=== PATIENT | male | born 1960 | race Caucasian/White ===

== ENCOUNTER 2017-07-22 07:22 | Emergency (ER) | payer OTHER, SELFPAY ==
[2017-07-22 07:22] VITALS: BP 167/105; BP 167/116; PULSE 71; RESP 15; TEMP 36.5; BMI 24.3
--- NOTE | 2017-07-22 07:55 | RAD_ITS ---
STUDY: X-RAY - LEFT HAND REASON FOR EXAM: Trauma, transmission fell on hand. TECHNIQUE: 3 view(s) of the hand. COMPARISON: None. FINDINGS: Normal radiocarpal articulation. Normal distal radioulnar joint. Normal visualized carpal bones. Normal carpal articulations There is joint space narrowing of the carpometacarpal articulation of the thumb. Normal second through fifth carpometacarpal joints. Normal metacarpi. Normal metacarpophalangeal joint of the thumb. Normal interphalangeal joint of the thumb. Normal proximal and distal phalanges of the thumb. Normal metacarpophalangeal joints of the second through fifth fingers. There are small marginal osteophytes and joint space narrowing of the second and third distal interphalangeal joints. Normal phalanges of the second through fifth fingers. There is a metallic foreign body adjacent to the first proximal phalanx. There are small metallic foreign bodies palmar and radial to the second proximal interphalangeal joint. There is a very small soft tissue ossification radial to the scaphoid. RAD/Hand Min 3 Views IMPRESSION: Arthrosis of the first carpometacarpal joint, and second and third distal interphalangeal joints. Metallic foreign bodies. No demonstrated fracture. Electronically Signed: Corby Leonard MD at 8:48 EDT Tel , Service support ,
--- NOTE | 2017-07-22 08:03 | ED.VISSUMM ---
- ER Visit Summary Date of Service: 07/22/17 Chief Complaint: Left hand injury with pain and swelling History of Present Illness: The patient is a 57 M [id number] male without significant past medical history other than COPD. 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 Complaining of pain and swelling today. Tetanus is up-to-date. He denies any prior fracture or surgery in the left hand. Physical Examination: Well appearing middle-aged male. Vital signs are stable afebrile. His blood pressure is elevated 167/116 which will be rechecked. HEENT exam unremarkable. Neck nontender. No lymphadenopathy. Lungs clear to auscultation. Chest wall nontender. Heart regular rate and rhythm. Abdomen soft nontender. He is moving all 4 extremities. They are neurovascularly intact. Specifically his dorsum of his left hand and wrist has swelling. There is tenderness to the dorsum of his left hand over the fifth or small finger metacarpal. There is no gross bony deformity. There is a superficial laceration which is not bleeding. He has decreased range of motion due to pain. And swelling. Distally the left hand has normal flow and sensation. Test Results: X-ray of his left hand 3 views show soft tissue swelling but no acute fracture noted. This is read by myself. Emergency Department Course and Treatment: Patient will be discharged to home with ice, elevation and anti-inflammatories. Treatment Plan: Ice and elevate. Motrin for pain and inflammation. Follow-up with his primary care physician if not improving in 1 week to have his hand reevaluated. Disposition: Discharge Impression: Acute left hand contusion with soft tissue swelling. This note was generated with [employer] dictation software. It may contain incorrect words, spelling, and punctuation that were not noted in review of the chart prior to signing ED Disposition - Plan for ED Patient: Disposition: Home or Assisted Living Chief Complaint: Upper Extremity Injury Instructions: ED Contusion Upper Ext Referrals: Faith James DO [Primary Care Provider] - 1 Week if not improving Additional Instructions: Ice and elevate your left hand to decrease pain and swelling. If pain and swelling not improving need to have this reevaluated to ensure that there is no nondisplaced fracture that is not seen today on the x-rays. Motrin for pain and swelling.
--- NOTE | 2017-07-22 08:08 | ED.DCSUM_ITS ---
- ER Visit Summary Date of Service: 07/22/17 Chief Complaint: Left hand injury with pain and swelling History of Present Illness: The patient is a 57 M [id number] male without significant past medical history other than COPD. 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 Complaining of pain and swelling today. Tetanus is up-to-date. He denies any prior fracture or surgery in the left hand. Physical Examination: Well appearing middle-aged male. Vital signs are stable afebrile. His blood pressure is elevated 167/116 which will be rechecked. HEENT exam unremarkable. Neck nontender. No lymphadenopathy. Lungs clear to auscultation. Chest wall nontender. Heart regular rate and rhythm. Abdomen soft nontender. He is moving all 4 extremities. They are neurovascularly intact. Specifically his dorsum of his left hand and wrist has swelling. There is tenderness to the dorsum of his left hand over the fifth or small finger metacarpal. There is no gross bony deformity. There is a superficial laceration which is not bleeding. He has decreased range of motion due to pain. And swelling. Distally the left hand has normal flow and sensation. Test Results: X-ray of his left hand 3 views show soft tissue swelling but no acute fracture noted. This is read by myself. Emergency Department Course and Treatment: Patient will be discharged to home with ice, elevation and anti-inflammatories. Treatment Plan: Ice and elevate. Motrin for pain and inflammation. Follow-up with his primary care physician if not improving in 1 week to have his hand reevaluated. Disposition: Discharge Impression: Acute left hand contusion with soft tissue swelling. This note was generated with [employer] dictation software. It may contain incorrect words, spelling, and punctuation that were not noted in review of the chart prior to signing ED Disposition - Plan for ED Patient: Disposition: Home or Assisted Living Chief Complaint: Upper Extremity Injury Instructions: ED Contusion Upper Ext Referrals: Faith James DO [Primary Care Provider] - 1 Week if not improving Additional Instructions: Ice and elevate your left hand to decrease pain and swelling. If pain and swelling not improving need to have this reevaluated to ensure that there is no nondisplaced fracture that is not seen today on the x-rays. Motrin for pain and swelling.
== END 2017-07-22 08:12 | disposition home or self-care (01) ==
PROVIDERS: Emergency Provider Emergency Medicine; Family Provider Internal Medicine; PCP Internal Medicine
DX: S60.222A Contusion of left hand, initial encounter (principal); W24.1XXA Contact with transmission devices, not elsewhere classified, initial encounter; Y93.9 Activity, unspecified; Y92.89 Other specified places as the place of occurrence of the external cause; Y99.9 Unspecified external cause status; J44.9 Chronic obstructive pulmonary disease, unspecified; Z72.0 Tobacco use
CPT/HCPCS: 73130; 99282

== ENCOUNTER → 2018-08-09 12:49 | Outpatient (CLI) | payer OTHER, SELFPAY ==
[2018-08-09 13:13] LABS: Bacteria 0 SEEN /hpf (None Seen); Mucous, Urine 0 SEEN /hpf (<or=2+); Red Blood Cells-Urine 0 SEEN /hpf (0-5); Squamous Epithelial Cells - UA 0 SEEN /hpf (0-5); White Blood Cells 0 SEEN /hpf (0-5)
[2018-08-09 14:14] LABS: Color, Urine Yellow (Yellow); Glucose, Dipstick Normal (Normal); Ketone-Dipstick Negative (Negative); Leukocyte Esterase-Dipstick Negative /ul (Negative); Nitrite-Dipstick Negative (Negative); Occult Blood-Urine Negative /ul (Negative); Protein-Dipstick Negative (Negative); Urine Bilirubin Dipstick Negative (Negative); Urine Clarity Sl. Cloudy (Clear); Urine Urobilinogen Normal (Normal); Urine pH 6.5 (5.0 - 8.0)
[2018-08-09 14:23] LABS: Erythrocyte Sedimentation Rate 13 mm/hr (0-20)
[2018-08-09 14:27] LABS: Absolute Lymphocyte Count 2.91 X10^3/ul (0.83-4.51); Absolute Neutrophil Count 3.5 X10^3/uL (2.0-7.7); Basophil# 0.05 X10^3/uL; Basophil% 0.7 % (0-1); Eosinophil# 0.25 X10^3/uL; Eosinophils% 3.4 % (0-5); Hematocrit 45.1 % (40-54); Hemoglobin 15.9 g/dl (13.0-16.5); Lymphocyte # 2.91 X10^3/ul (4.0); Lymphocyte % 39.9 % (19-41); Mean Corp Hgb Conc 35.3 g/gl (32-36); Mean Corpuscular Hgb 34.6 pg (27.0-32.0); Mean Platelet Vol. 10.2 fl (6.2-12.0); Monocyte# 0.64 X10^3/uL; Monocyte% 8.8 % (0-10); Neutrophil # 3.45 X10^3/uL (2.7-7.7); Neutrophil % 47.2 % (47-70); POSITIVE COUNT NO; POSITIVE DIFFERENTIAL NO; POSITIVE MORPHOLOGY NO; Platelet Count 280 K/mm3 (150-450); RBC Distribution Width CV 12.7 % (11.6-14.6); RBC Distribution Width SD 45.9 fl (35.1-43.9); White Blood Count 7.3 K/mm3 (4.4-11.0)
[2018-08-09 14:41] LABS: Microalbumin,Random Urine < 5.0 mg/L (NO RANGE EST.)
[2018-08-09 14:45] LABS: AST(SGOT) 23 U/L (15-37); Alanine Aminotransfer ALT/SGPT 39 U/L (16-61); Albumin, Serum 3.8 g/dL (3.2-5.0); Alkaline Phosphatase 54 U/L (45-117); Anion Gap 8 (5-15); BUN 8 mg/dL (7-18); BUN/Creat Ratio 11.3 RATIO (10-20); CRP < 2.90 mg/L (0.0-3.0); Calcium,Total 8.5 mg/dL (8.5-10.1); Chloride 107 mmol/L (98-107); Creatinine, Serum 0.71 mg/dL (0.70-1.30); EST Glomerular Filtration Rate 121 mL/min (>60); Est Glom Filt Rate - Afr Amer 146 mL/min (>60); Globulin 3.7 g/dL (2.2-4.2); Glucose 78 mg/dL (74-106); Potassium 3.9 mmol/L (3.5-5.1); Protein, Total 7.5 g/dL (6.4-8.2); Rheumatoid Factor < 10.0 IU/mL (<15); Sodium Level 139 mmol/L (136-145); Thyroid Stim Hormone (TSH) 1.55 uIU/mL (0.358-3.74)
[2018-08-10 10:16] LABS: Vitamin B12 1412 pg/mL (211-911); Vitamin D,25 Hydroxy 13.5 ng/mL (29.95-100.01)
[2018-08-10 10:19] LABS: Hepatitis C Antibody Reactive (Nonreactive)
[2018-08-11 16:07] LABS: CHOLESTEROL TOTAL 173 mg/dL (100-199); HDL-C 72 mg/dL (>39); HDL-P TOTAL 29.6 umol/L (>=30.5); SMALL LDL-P <90 nmol/L (<=527); TRIGLYCERIDES 98 mg/dL (0-149)
[2018-08-13 17:02] LABS: ANTINUCLEAR ANTIBODIES DIRECT Negative (Negative); INSULIN RESISTANCE SCORE <25 (<=45); LDL SIZE 21.8 nm (>20.5); LDL-C 81 mg/dL (0-99); LDL-P 686 nmol/L (<1000)
== END ==
LOC: MTLAB 12:50
PROVIDERS: Family Provider Internal Medicine; PCP Internal Medicine; Referring Provider Internal Medicine; Visit Provider Internal Medicine
DX: R53.83 Other fatigue (principal); I10 Essential (primary) hypertension; B19.20 Unspecified viral hepatitis C without hepatic coma
CPT/HCPCS: 36415; 80053; 80061; 81001; 82043; 82306; 82570; 82607; 82746; 83704; 84443; 85025; 85652; 86038; 86140; 86431; 86803

== ENCOUNTER → 2018-08-30 15:49 | Outpatient (CLI) | payer SELFPAY ==
--- NOTE | 2018-08-30 15:51 | RAD_ITS ---
STUDY: X-RAY CHEST REASON FOR EXAM: Male, 58 years old. COPD. Weight loss. TECHNIQUE: Frontal and lateral views of the chest COMPARISON: CT dated 10/08/2015. FINDINGS: There are stable severe emphysematous changes with large right apical bulla. There are no pulmonary infiltrates or pleural effusions. There is no pneumothorax. The heart is normal in size. The visualized osseous structures are within normal limits. RAD/Chest PA and Lateral IMPRESSION: Stable severe emphysema with large right apical bulla. No acute thoracic pathology. Please note that chest radiographs are not adequate screening for lung cancer. Electronically Signed: Jose Masterson, at 18:14 EDT Tel , Service support ,
== END ==
PROVIDERS: Family Provider Internal Medicine; PCP Internal Medicine; Referring Provider Nurse Practitioner; Visit Provider Nurse Practitioner
DX: J44.9 Chronic obstructive pulmonary disease, unspecified (principal); R53.83 Other fatigue; R63.4 Abnormal weight loss
CPT/HCPCS: 71046

== ENCOUNTER 2019-09-30 18:37 | Inpatient (IN) | payer OTHER, SELFPAY ==
[2019-09-30] VITALS (9 sets, daily range): BP systolic 132–192; BP diastolic 58–155; PULSE 64–85; RESP 14–24; TEMP 36.4–37.7; O2SAT 88–96; BMI 26.1; BMI 25.8
--- NOTE | 2019-09-30 18:51 | EKG12_ITS ---
Test Reason : SOB Blood Pressure : / mmHG Vent. Rate : 085 BPM Atrial Rate : 085 BPM P-R Int : 170 ms QRS Dur : 088 ms QT Int : 386 ms P-R-T Axes : 092 093 090 degrees QTc Int : 459 ms Suspect arm lead reversal, interpretation assumes no reversal Normal sinus rhythm Rightward axis Nonspecific ST abnormality Abnormal ECG Confirmed by JOANNA WALKER, LAKESHIA ([id number]), manager editorial DIANA PENA ([id number]) on 10/04/2019 9:00:20 AM Referred By: VERONICA Confirmed By:JUANA MARSHALL MD
--- NOTE | 2019-09-30 18:55 | RAD_ITS ---
STUDY: X-RAY CHEST REASON FOR EXAM: Male, 59 years old. shortness of breath, Hx smoker, emphysema TECHNIQUE: Frontal view of the chest COMPARISON: August 30 2018 FINDINGS: Right upper lung is replaced with a bulla with compressive effects on the right lower lobe parenchyma. There are diffuse increased lung markings and lung density in the left hemithorax. Cardiac size is normal. Osseous structures are intact. There is no gas under the diaphragms. RAD/Chest 1 View (Portable) IMPRESSION: Increased lung opacity, possibly acute disease, refer to definitive assessment with CT chest. Massive right upper lung bulla with right lower lobe compression. Electronically Signed: Akila Beebe, at 19:14 EDT Tel , Service support ,
[2019-09-30] MEDS: Ipratropium/Albuterol Sulfate 3 ML AMPUL.NEB INHALATION ×2 (19:05→23:54)
[2019-09-30] MEDS: Albuterol 2.5 MG/3 ML VIAL.NEB. INHALATION ×3 (19:05→21:00)
[2019-09-30 19:29] LABS: Absolute Lymphocyte Count 3.19 X10^3/uL (0.83-4.51); Absolute Neutrophil Count 7.5 X10^3/uL (2.0-7.7); Basophil# 0.04 X10^3/uL; Basophil% 0.3 % (0-1); Eosinophil# 0.06 X10^3/uL; Eosinophils% 0.5 % (0-5); Hematocrit 51.9 % (40-54); Hemoglobin 17.7 g/dL (13.0-16.5); Lymphocyte # 3.19 X10^3/ul (4.0); Lymphocyte % 26.6 % (19-41); Mean Corp Hgb Conc 34.1 g/dL (32-36); Mean Corpuscular Hgb 35.8 pg (27.0-32.0); Mean Corpuscular Volume 104.8 fL (80-94); Mean Platelet Vol. 9.6 fl (6.2-12.0); Monocyte# 1.12 X10^3/uL; Monocyte% 9.3 % (0-10); NRBC Flagged by Analyzer 0 % (0-5); Neutrophil # 7.53 X10^3/uL (2.7-7.7); Platelet Count 314 K/mm3 (150-450); RBC Distribution Width CV 12.2 % (11.6-14.6); RBC Distribution Width SD 47.6 fl (35.1-43.9); Red Blood Count 4.95 M/mm3 (4.6-6.2)
--- NOTE | 2019-09-30 19:34 | ED.VISSUMM ---
- ER Visit Summary Date of Service: 09/30/19 Chief Complaint: Shortness of breath History of Present Illness: The patient is a 59 M with shortness of breath. Patient states this started on Thursday and worsened today. He has shortness of breath which is worsened with exertion. He has chest pain with deep breathing and coughing. He has a history of COPD. He does not wear home O2. On arrival his pulse ox was 88% on room air. He has had temperature up to 99.8 at home. He has had a productive cough and myalgias. He tested negative for COVID in August. Physical Examination: Vitals are stable. Patient is afebrile. Alert no acute distress. Pulse ox 94% on 5 L. HEENT exam is unremarkable. Neck is supple. Lungs are wheezing bilaterally. Heart is regular rate and rhythm. Abdomen is soft nontender nondistended. Extremities are unremarkable. Skin is warm and dry. No focal neurologic deficit. Remainder of exam is unremarkable. Emergency Department Course and Treatment: Patient was given albuterol, Atrovent aerosols. EKG is sinus rhythm rate of 85 with no acute ischemic changes. Chest x-ray shows Increased lung opacity, possibly acute disease, refer to definitive assessment with CT chest. Massive right upper lung bulla with right lower lobe compression. CTA chest shows no pulmonary embolism. Right lower lobe atelectasis. Severe emphysema. No acute pulmonary disease. CBC shows white count 12.0. Chemistries unremarkable. Troponin is negative. D-dimer normal. COVID is negative. Patient was given Solu-Medrol IV. He continues to require oxygen in the emergency department. Will discuss with the hospitalist for admission. Disposition: Admission Impression: COPD exacerbation, hypoxia This note was generated with [employer] dictation software. It may contain incorrect words, spelling, and punctuation that were not noted in review of the chart prior to signing ED Disposition - Plan for ED Patient: Referrals: Faith James DO [Primary Care Provider] -
[2019-09-30 19:36] LABS: D-Dimer Quantitative (DVT/PE) 0.38 FEU/ug/m (0.27-0.49)
[2019-09-30 19:51] LABS: Anion Gap 7 (5-15); BUN 10 mg/dL (7-18); BUN/Creat Ratio 13.3 RATIO (10-20); Calcium,Total 9.5 mg/dL (8.5-10.1); Chloride 108 mmol/L (98-107); Creatinine, Serum 0.75 mg/dL (0.70-1.30); EST Glomerular Filtration Rate 112 mL/min (>60); Est Glom Filt Rate - Afr Amer 136 mL/min (>60); Estimated Creatinine Clearance 113.53 ml/min; Glucose 98 mg/dL (74-106); Potassium 4.2 mmol/L (3.5-5.1); Sodium Level 138 mmol/L (136-145)
--- NOTE | 2019-09-30 20:08 | CT_ITS ---
STUDY: CTA CHEST REASON FOR EXAM: Male, 59 years old. sudden onset of sob with fever. RUL bulla. hx of copd emphysema and hep c RADIATION DOSAGE (If Supplied By Facility): CTDIvol = ( ) mGy, DLP = ( ) mGycm TECHNIQUE: The examination was performed with the intravenous administration of 100 ml isovue 370. Post-processing of the angiographic images was performed, with multiplanar reformation and 3D reconstruction. Individualized dose optimization techniques were used for this CT. COMPARISON: None. FINDINGS: Lungs are severely emphysematous with a giant bulla replacing the right upper lobe with compressive effects on the right lower lobe. There is a small irregularly-shaped elongated predominantly subpleural consolidation in the right lower lobe. There are extensive cystic bullous changes in the left upper lobe with mild to moderate compressive change on the left lower lobe. Central airways are patent. There are no pleural effusions. There is no acute or chronic pulmonary embolism. Mediastinal contents are normal. Cardiac chambers are normal in size and shape. The skeleton is osteoporotic with midthoracic mild compression wedging deformity. CT/CTA Chest W/WO Contrast IMPRESSION: 1. No pulmonary embolism 2. Right lower lobe atelectasis. 3. Severe emphysema. No acute pulmonary disease. Electronically Signed: Akila Beebe, at 20:39 EDT Tel , Service support ,
[2019-09-30 20:24] LABS: Probe Check PASS; Specimen Processing Control PASS
[2019-09-30] MEDS: MethylPREDNISolone 125 MG/2 ML Vial IV (21:43)
--- NOTE | 2019-09-30 21:43 | HP.PCM_ITS ---
Problem List (1) COPD (chronic obstructive pulmonary disease) Status: Acute Qualifiers: COPD type: COPD with acute exacerbation Qualified Code(s): J44.1 - Chronic obstructive pulmonary disease with (acute) exacerbation (2) Hep C w/o coma, chronic Status: Chronic (3) Neck pain Status: Inactive History of Present Illness Date of Admission: 09/30/19 Chief Complaint: sob The patient is a 59 year old M with a significant history of COPD; and hepatitis C who presents emergency department with 6-day history of progressively worsening shortness of breath. His shortness of breath is at rest and it worsens with mild exertion. He was so short of breath that to he took a half day off work. Associated with his symptoms is productive cough of yellow sputum. Also he had wheezes. Further, he had right upper back pain. He tried multiple doses of his rescue inhaler without any real relief. He denied any chills or fever. He had a negative COVID test in August 2019. Past Medical History Past Medical History (Chronic Problems): Chronic Problems (Last Updated 10/01/19 @ 04:[address] Fernando Galicia MD) Hep C w/o coma, chronic (Chronic) Medical History: Medical History (Last Updated 10/01/19 @ 04:[address] Fernando Galicia MD) COPD (chronic obstructive pulmonary disease) J44.9 Allergies latex Allergy (Severe, Verified 09/30/19 18:45) Other passed out after coming into contact with an [place]. Primary MD diagnosed him with a latex allergy Home Medications: Ambulatory Orders Medication Instructions Recorded Acetaminophen [Tylenol] 2,000 mg PO 4X/DAY PRN 07/22/17 Albuterol Aerosols [Ventolin 2.5 mg INHALATION BID 07/22/17 Aerosols] Amlodipine [Norvasc] 5 mg PO DAILY 07/22/17 Albuterol Sulfate [Albuterol 2 puff IH Q4H 09/30/19 Sulfate HFA] Surgical History: - - Ankle fracture surgery. He has 2 screws in his ankle. Smoking Status: Former smoker Alcohol: None - *Family History Maternal History Items: - - Denies knowledge of maternal medical history Paternal History Items: - - Arthritis Review of Systems Constitutional: Denies: Chills, Fever, Weight Change HEENT: Denies: Head Aches, Sinus Congestion, Sinus Drainage Cardiovascular: Denies: Chest Pain, Palpitations Respiratory: Reports: Shortness of breath at rest, Sputum production, Wheezing. Denies: Cough Gastrointestinal: Denies: Abdominal Pain, Nausea, Vomiting Genitourinary: Denies: Dysuria Musculoskeletal: Denies: Joint Pain, Joint Tenderness Skin: Denies: Rash, Wounds Neurological: Denies: Numbness, Tingling, Focal weakness Psychiatric: Denies: Anxiety, Depression, Homicidal Ideations, Suicidal Ideations Hematologic/ Lymphatic: Denies: Easy Bruising, Easy Bleeding VTE Information - Inpt Only VTE Present on Admission: No VTE Mechan Device Prophylaxis: None VTE Pharm Prophylaxis ordered?: Yes - Physical Exam Vitals/I&O's: Vital Signs Temp Pulse Resp BP Pulse Ox 99.9 F H 65 18 132/58 H 93 09/30/19 18:45 09/30/19 20:29 09/30/19 20:29 09/30/19 20:29 09/30/19 20:29 Oxygen Flow Rate (L/min) 3 Oxygen Delivery Method Nasal Cannula Weight: 87.4 kg Body Mass Index (BMI) 26.1 General: Alert, Oriented x3, Cooperative HEENT: Atraumatic, PERRLA, EOMI, Normocephalic Neck: Supple, No JVD, Negative Carotid Bruits Lungs: No rhonchi, No rales, Wheezes Cardiovascular: Regular rate, Normal S1, Normal S2, No murmurs Abdomen: Bowel Sounds Present, Soft, Non Tender Extremities: No edema, Capillary Refill Less than 3 Seconds Skin: No rashes, No breakdown Musculoskeletal: No Tenderness to Palpation of Joints or Extremities Neurological: Cranial nerves II-XII grossly intact Psych/Mental Status: Normal Affect, Appropriate Laboratory Results 09/30/19 18:43: WBC 12.0 H, RBC 4.95, Hgb 17.7 H, Hct 51.9, MCV 104.8 H, MCH 35.8 H, MCHC 34.1, RDW Std Deviation 47.6 H, RDW Coeff of Tim 12.2, Plt Count 314, MPV 9.6, Immature Gran % (Auto) 0.300, Neut % (Auto) 63.0, Lymph % (Auto) 26.6, [place] % (Auto) 9.3, Eos % (Auto) 0.5, Baso % (Auto) 0.3, Absolute Neuts (auto) 7.5, Absolute Lymphs (auto) 3.19, Nucleated RBC % 0 09/30/19 18:43: D-Dimer Quant (PE/DVT) 0.38 09/30/19 18:43: Sodium 138, Potassium 4.2, Chloride 108 H, Carbon Dioxide 23.0, Anion Gap 7, BUN 10, Creatinine 0.75, Estim Creat Clear Calc 113.53, Est GFR (MDRD) Af Amer 136, Est GFR (MDRD) Non-Af 112, BUN/Creatinine Ratio 13.3, Glucose 98, Calcium 9.5, Troponin I < 0.015 09/30/19 19:05: COVID-19 (RYAN) Negative Assessment/Plan All Active Problems (Last Updated 10/01/19 @ 04:[address] Fernando Galicia MD) COPD (chronic obstructive pulmonary disease) (Acute) The patient is a 59 year old M with a significant history of COPD; and hepatitis C who presents emergency department with 6-day history of progressively worsening shortness of breath; productive cough. Acute Exacerbation of COPD CXR independently reviewed confirms massive right upper lobe lung bullae with right lower lobe compression Chest CTA showed severe pulmonary disease without any pulmonary embolism. Scheduled DuoNeb Albuterol as needed Solu-Medrol 125 mg IV was given in the emergency department. Because of low-grade fever and leukocytosis will start patient on azithromycin IV. Oxygen as needed Monitor BMP and CBC Incentive spirometer and acapella ordered. Mucinex ordered COVID test was negative at the ED and patient's chest imaging does not point to covid HTN On presentation blood pressure was not within goal Amlodipine continued Trend blood pressure and adjust blood pressure medications. DVT prophylaxis Subcutaneous Lovenox. Inpatient E&M: 21314 Init Hosp L3
[2019-10-01] VITALS (13 sets, daily range): BP systolic 144–176; BP diastolic 90–118; PULSE 78–101; RESP 12–18; TEMP 36.4–36.9; O2SAT 92–94
[2019-10-01] MEDS: guaiFENesin 1,200 MG Tablet 1200 MG PO ×3 (00:27→20:52)
[2019-10-01] MEDS: Acetaminophen 325 MG Tablet 650 MG PO ×4 (00:34→20:09)
[2019-10-01] MEDS: MELATONIN 3 MG TABLET PO ×2 (00:34→20:53)
[2019-10-01] MEDS: 0.9% Saline Lock 10 ML Syringe IV ×5 (00:34→20:05)
[2019-10-01] MEDS: hydrALAZINE 20 MG/ML Vial 5 MG IV ×2 (06:19→20:02)
[2019-10-01] MEDS: Ipratropium/Albuterol Sulfate 3 ML AMPUL.NEB INHALATION ×4 (07:01→18:40)
[2019-10-01 07:30] LABS: Absolute Lymphocyte Count 1.22 X10^3/uL (0.83-4.51); Absolute Neutrophil Count 7.1 X10^3/uL (2.0-7.7); Basophil# 0.01 X10^3/uL; Basophil% 0.1 % (0-1); Hematocrit 52.7 % (40-54); Lymphocyte # 1.22 X10^3/ul (4.0); Lymphocyte % 14.1 % (19-41); Mean Corp Hgb Conc 34.2 g/dL (32-36); Mean Corpuscular Hgb 35.3 pg (27.0-32.0); Mean Corpuscular Volume 103.3 fL (80-94); Mean Platelet Vol. 9.2 fl (6.2-12.0); Monocyte# 0.25 X10^3/uL; Monocyte% 2.9 % (0-10); NRBC Flagged by Analyzer 0 % (0-5); Neutrophil # 7.12 X10^3/uL (2.7-7.7); Neutrophil % 82.3 % (47-70); Platelet Count 316 K/mm3 (150-450); RBC Distribution Width CV 12.2 % (11.6-14.6); RBC Distribution Width SD 46.9 fl (35.1-43.9); White Blood Count 8.7 K/mm3 (4.4-11.0)
[2019-10-01 07:46] LABS: Anion Gap 9 (5-15); BUN 10 mg/dL (7-18); BUN/Creat Ratio 14.7 RATIO (10-20); Calcium,Total 9.3 mg/dL (8.5-10.1); Chloride 104 mmol/L (98-107); Creatinine, Serum 0.68 mg/dL (0.70-1.30); EST Glomerular Filtration Rate 125 mL/min (>60); Est Glom Filt Rate - Afr Amer 152 mL/min (>60); Estimated Creatinine Clearance 125.21 ml/min; Glucose 144 mg/dL (74-106); Potassium 3.8 mmol/L (3.5-5.1); Sodium Level 135 mmol/L (136-145)
[2019-10-01] MEDS: Enoxaparin 40 MG/0.4 ML Syringe SC (08:05)
[2019-10-01] MEDS: amLODIPine 5 MG Tablet PO ×2 (08:06→10:43)
--- NOTE | 2019-10-01 10:10 | PN_ITS ---
Subjective: Patient seen and examined. He still complains of shortness of breath and got very short of breath when he even try to go to the bathroom this morning. He quit smoking 2 years ago but had a very long smoking history. He denies any wheezing, chest pain, nausea or vomiting. Review of symptoms otherwise negative. Of note, patient could not complete sentences without getting short of breath. Vitals/I&O's: Vital Signs Temp Pulse Resp BP Pulse Ox 97.5 F L 89 16 176/90 H 93 10/01/19 08:09 10/01/19 08:09 10/01/19 08:09 10/01/19 08:09 10/01/19 08:09 Oxygen Flow Rate (L/min) 2 Oxygen Delivery Method Nasal Cannula Weight: 190 lb 4.143 oz Body Mass Index (BMI) 25.8 Intake and Output for Last 24 Hours 09/29/19 09/30/19 10/01/19 23:59 23:59 23:59 Intake Total 455 / 455 Balance 455 / 455 General: Alert, Oriented x3, Cooperative, No apparent distress HEENT: Atraumatic, PERRLA, EOMI, Normocephalic Oral: Dry Mucosa Neck: Supple, No JVD, Negative Carotid Bruits Lungs: - - lungs sound very tight, with diminished breath sounds in all lung rondon. No wheezes or crackles. Cardiovascular: Regular rate, Regular Rhythm, Normal S1, Normal S2, No murmurs Abdomen: Bowel Sounds Present, Soft, Non Tender, Non-Distended, No Hepato- splenomegaly Extremities: No clubbing, No cyanosis, No edema, Capillary Refill Less than 3 Seconds Skin: No rashes, No breakdown Musculoskeletal: No Tenderness to Palpation of Joints or Extremities Lymphatic: No Cervical, Supraclavicular, or Inguinal Adenopathy Neurological: Cranial nerves II-XII grossly intact, Neuro grossly intact, Motor Exam 5/5 strength throughout Psych/Mental Status: Normal Affect, Appropriate, Alert and oriented to time, place, person, mood and affect Laboratory Results 09/30/19 18:43: WBC 12.0 H, RBC 4.95, Hgb 17.7 H, Hct 51.9, MCV 104.8 H, MCH 35.8 H, MCHC 34.1, RDW Std Deviation 47.6 H, RDW Coeff of Tim 12.2, Plt Count 314, MPV 9.6, Immature Gran % (Auto) 0.300, Neut % (Auto) 63.0, Lymph % (Auto) 26.6, [place] % (Auto) 9.3, Eos % (Auto) 0.5, Baso % (Auto) 0.3, Absolute Neuts (auto) 7.5, Absolute Lymphs (auto) 3.19, Nucleated RBC % 0 09/30/19 18:43: D-Dimer Quant (PE/DVT) 0.38 09/30/19 18:43: Sodium 138, Potassium 4.2, Chloride 108 H, Carbon Dioxide 23.0, Anion Gap 7, BUN 10, Creatinine 0.75, Estim Creat Clear Calc 113.53, Est GFR (MDRD) Af Amer 136, Est GFR (MDRD) Non-Af 112, BUN/Creatinine Ratio 13.3, Glucose 98, Calcium 9.5, Troponin I < 0.015 09/30/19 19:05: COVID-19 (RYAN) Negative 10/01/19 06:55: WBC 8.7, RBC 5.10, Hgb 18.0 H*, Hct 52.7, MCV 103.3 H, MCH 35.3 H, MCHC 34.2, RDW Std Deviation 46.9 H, RDW Coeff of Tim 12.2, Plt Count 316, MPV 9.2, Immature Gran % (Auto) 0.600, Neut % (Auto) 82.3 H, Lymph % (Auto) 14.1 L, [place] % (Auto) 2.9, Eos % (Auto) 0.0, Baso % (Auto) 0.1, Absolute Neuts (auto) 7.1, Absolute Lymphs (auto) 1.22, Nucleated RBC % 0, Diff Path Review June10/01/19 06:55: Sodium 135 L, Potassium 3.8, Chloride 104, Carbon Dioxide 22.0, Anion Gap 9, BUN 10, Creatinine 0.68 L, Estim Creat Clear Calc 125.21, Est GFR (MDRD) Af Amer 152, Est GFR (MDRD) Non-Af 125, BUN/Creatinine Ratio 14.7, Glucose 144 H, Calcium 9.3 Diagnostic Data Chest X-Ray 09/30/19 18:55 IMPRESSION: Increased lung opacity, possibly acute disease, refer to definitive assessment with CT chest. Massive right upper lung bulla with right lower lobe compression. Electronically Signed: Akila Beebe, at 19:14 EDT Tel , Service support , Chest CTA 09/30/19 20:08 IMPRESSION: 1. No pulmonary embolism 2. Right lower lobe atelectasis. 3. Severe emphysema. No acute pulmonary disease. Electronically Signed: Akila Solomonhammad, at 20:39 EDT Tel , Service support , Current Medications Acetaminophen (Tylenol) 650 mg PO Q6H PRN PRN PRN Reason: Pain Score 1-10/Temp > 100.7 F Last Admin: 10/01/19 08:05 Dose: 650 mg Documented by: Albuterol Sulfate (Ventolin Aerosols) 2.5 mg INHALATION Q2H PRN PRN PRN Reason: Shortness of Breath/Wheezing Albuterol/Ipratropium (Duoneb) 3 ml INHALATION Q4HWA.RT [facility] Last Admin: 10/01/19 07:01 Dose: 3 ml Documented by: Amlodipine Besylate (Norvasc) 5 mg PO DAILY [facility] Last Admin: 10/01/19 08:06 Dose: 5 mg Documented by: Enoxaparin Sodium (Lovenox) 40 mg SC DAILY [facility] Last Admin: 10/01/19 08:05 Dose: 40 mg Documented by: Guaifenesin (Mucinex) 1,200 mg PO BID [facility] Last Admin: 10/01/19 08:06 Dose: 1,200 mg Documented by: Hydralazine HCl (Apresoline Iv) 5 mg IV Q4H PRN PRN PRN Reason: BLOOD PRESSURE Last Admin: 10/01/19 06:19 Dose: 5 mg Documented by: Azithromycin 500 mg/ Dextrose 255 mls @ 250 mls/hr IV Q24@2200 [facility] Stop: 10/02/19 23:02 Last Infusion: 10/01/19 01:29 Dose: Infused Documented by: Sodium Chloride () 250 mls @ 15 mls/hr IV .[id number] PRN PRN Reason: Saline Flush Melatonin (Melatonin) 3 mg PO QHS PRN PRN PRN Reason: INSOMNIA Last Admin: 10/01/19 00:34 Dose: 3 mg Documented by: Methylprednisolone (Solu-Medrol) 40 mg IV Q8 SADIA Last Admin: 10/01/19 05:27 Dose: 40 mg Documented by: Ondansetron HCl (Zofran) 4 mg IV Q8H PRN PRN PRN Reason: NAUSEA/VOMITING Sodium Chloride () 10 - 40 ml IV UD PRN PRN Reason: SALINE FLUSH Last Admin: 10/01/19 06:19 Dose: 10 ml Documented by: STROKE Vital Signs/Narrative: Vital Signs Temp Pulse Resp BP Pulse Ox 10/01/19 08:09 97.5 F L 89 16 176/90 H 93 10/01/19 07:01 80 16 10/01/19 06:19 84 Medical Necessity - Tobacco Use Smoking Status: Former smoker Tobacco Use: Cigarettes Assessment/Plan All Active Problems (Last Updated 10/01/19 @ 04:[address] Fernando Galicia MD) COPD (chronic obstructive pulmonary disease) (Acute) # Acute COPD exacerbation * Breath sounds still generally diminished and lung sounds very tight. * Chest x-ray showed massive right upper lung bullae with right lower lobe compression. CTA of the chest showed severe pulmonary disease without any PE. * On duo nebs as needed. * On IV Solu-Medrol as well as IV azithromycin. * On incentive spirometry and Acapella. COVID test was negative. * Titrate oxygen to maintain saturation above 90%. * #Hypertension: On amlodipine. Pressure remains elevated. Will give IV hydralazine PRN. Add on losartan. #Acute hypoxic respiratory insufficiency due to COPD exacerbation: Management as under 1. DVT prophylaxis: lovenox Inpatient E&M: 99649 Subs Hosp L3
--- NOTE | 2019-10-01 14:01 | CASEMGMT ---
RN CM Assessment Note Intro role of CM to patient in room. Pt is awake, alert and able to participate in assessment. patient is independent, does not use DME and plans to return home. COVID negative Diagnosis: COPD PCP: Dr. Faith James Insurance: [facility] Preferred [facility]acy: [facility] Prescription Benefit: yes LNOK: [place] Living Arrangements: Lives independently, works. no care needs identified. Tranportation: drives DME: nebulizer only HHC: none SNF: none Patient DC Goals: Home on dc DC Plan: Home CM available for discharge planning coordination. Contact CM for any concerns/needs that may arise. Aviva MCKEONN RN ACM
[2019-10-01] MEDS: Albuterol 2.5 MG/3 ML VIAL.NEB. INHALATION (21:07)
[2019-10-02] VITALS (13 sets, daily range): BP systolic 135–182; BP diastolic 94–114; PULSE 76–96; RESP 12–18; TEMP 36.6–36.9; O2SAT 93–94
[2019-10-02] MEDS: Ipratropium/Albuterol Sulfate 3 ML AMPUL.NEB INHALATION ×4 (07:18→19:23)
[2019-10-02] MEDS: hydrALAZINE 20 MG/ML Vial 5 MG IV (08:06)
[2019-10-02 08:42] LABS: Absolute Lymphocyte Count 1.53 X10^3/uL (0.83-4.51); Absolute Neutrophil Count 15.8 X10^3/uL (2.0-7.7); Basophil# 0.03 X10^3/uL; Basophil% 0.2 % (0-1); Hematocrit 51.8 % (40-54); Hemoglobin 17.6 g/dL (13.0-16.5); Lymphocyte # 1.53 X10^3/ul (4.0); Lymphocyte % 8.1 % (19-41); Mean Corpuscular Hgb 35.7 pg (27.0-32.0); Mean Corpuscular Volume 105.1 fL (80-94); Mean Platelet Vol. 9.2 fl (6.2-12.0); Monocyte% 6.9 % (0-10); NRBC Flagged by Analyzer 0 % (0-5); Neutrophil # 15.84 X10^3/uL (2.7-7.7); Neutrophil % 84.3 % (47-70); Platelet Count 316 K/mm3 (150-450); RBC Distribution Width CV 12.6 % (11.6-14.6); RBC Distribution Width SD 49.1 fl (35.1-43.9); Red Blood Count 4.93 M/mm3 (4.6-6.2); White Blood Count 18.8 K/mm3 (4.4-11.0)
[2019-10-02 09:20] LABS: Anion Gap 4 (5-15); BUN 17 mg/dL (7-18); BUN/Creat Ratio 27.5 RATIO (10-20); Calcium,Total 9.4 mg/dL (8.5-10.1); Chloride 110 mmol/L (98-107); Creatinine, Serum 0.62 mg/dL (0.70-1.30); EST Glomerular Filtration Rate 140 mL/min (>60); Est Glom Filt Rate - Afr Amer 170 mL/min (>60); Estimated Creatinine Clearance 137.33 ml/min; Glucose 120 mg/dL (74-106); Potassium 4.3 mmol/L (3.5-5.1); Sodium Level 138 mmol/L (136-145)
[2019-10-02] MEDS: guaiFENesin 1,200 MG Tablet 1200 MG PO ×2 (09:39→22:16)
[2019-10-02] MEDS: Enoxaparin 40 MG/0.4 ML Syringe SC (09:41)
[2019-10-02] MEDS: Losartan Potassium 25 MG Tablet PO (09:41)
[2019-10-02] MEDS: Acetaminophen 325 MG Tablet 650 MG PO ×2 (09:41→17:13)
--- NOTE | 2019-10-02 12:22 | PN_ITS ---
<Trevor Malcolm - Last Filed: 10/02/19 12:22> Reason for Visit: SOB Subjective: Pt with ongoing severe dyspnea on exertion and SOB with conversation. Pt ok with going on o2 but does not feel that he is ready for DC yet. he has no fever or chills. minimal cough. no wheezing. Pt has never seen a cardiology. Pt states he has not smoked in two years however his still smokes in the garage at home and smokes in the car. We discussed the need for him to be completely removed from any smoke exposure. He will talk to his concerning this. We discussed 2nd and 3rd hand smoke exposure. Vitals/I&O's: Vital Signs Temp Pulse Resp BP Pulse Ox 98.1 F 88 12 182/94 H 94 10/02/19 08:23 10/02/19 11:18 10/02/19 11:18 10/02/19 09:55 10/02/19 09:55 Oxygen Flow Rate (L/min) 2 Oxygen Delivery Method Nasal Cannula Weight: 190 lb 4.143 oz Body Mass Index (BMI) 25.8 Intake and Output for Last 24 Hours 09/30/19 10/01/19 10/02/19 23:59 23:59 23:59 Intake Total 1709 600 / 600 Balance 1709 600 / 600 General: Alert, Oriented x3, Cooperative HEENT: Atraumatic, PERRLA, EOMI, Normocephalic Neck: Supple, No JVD, Negative Carotid Bruits Lungs: Clear to auscultation, Diminished, Short of Breath, - - conversational dyspnea Cardiovascular: Regular rate, No murmurs Abdomen: Bowel Sounds Present, Soft, Non Tender Extremities: No edema, Capillary Refill Less than 3 Seconds Skin: No rashes, No breakdown Musculoskeletal: No Tenderness to Palpation of Joints or Extremities Neurological: Cranial nerves II-XII grossly intact Psych/Mental Status: Normal Affect, Appropriate, Alert and oriented to time, place, person, mood and affect Laboratory Results 10/02/19 08:15: WBC 18.8 H, RBC 4.93, Hgb 17.6 H, Hct 51.8, MCV 105.1 H, MCH 35.7 H, MCHC 34.0, RDW Std Deviation 49.1 H, RDW Coeff of Tim 12.6, Plt Count 316, MPV 9.2, Immature Gran % (Auto) 0.500, Neut % (Auto) 84.3 H, Lymph % (Auto) 8.1 L, Stearns % (Auto) 6.9, Eos % (Auto) 0.0, Baso % (Auto) 0.2, Absolute Neuts (auto) 15.8 H, Absolute Lymphs (auto) 1.53, Nucleated RBC % 0 10/02/19 08:15: Sodium 138, Potassium 4.3, Chloride 110 H, Carbon Dioxide 24.0, Anion Gap 4 L, BUN 17, Creatinine 0.62 L, Estim Creat Clear Calc 137.33, Est GFR (MDRD) Af Amer 170, Est GFR (MDRD) Non-Af 140, BUN/Creatinine Ratio 27.5 H, Glucose 120 H, Calcium 9.4 Current Medications Acetaminophen (Tylenol) 650 mg PO Q6H PRN PRN PRN Reason: Pain Score 1-10/Temp > 100.7 F Last Admin: 10/01/19 20:09 Dose: 650 mg Documented by: Albuterol Sulfate (Ventolin Aerosols) 2.5 mg INHALATION Q2H PRN PRN PRN Reason: Shortness of Breath/Wheezing Last Admin: 10/01/19 21:07 Dose: 2.5 mg Documented by: Albuterol/Ipratropium (Duoneb) 3 ml INHALATION Q4HWA.RT [facility] Last Admin: 10/02/19 11:18 Dose: 3 ml Documented by: Enoxaparin Sodium (Lovenox) 40 mg SC DAILY [facility] Last Admin: 10/02/19 09:41 Dose: 40 mg Documented by: Guaifenesin (Mucinex) 1,200 mg PO BID [facility] Last Admin: 10/02/19 09:39 Dose: 1,200 mg Documented by: Hydralazine HCl (Apresoline Iv) 5 mg IV Q4H PRN PRN PRN Reason: BLOOD PRESSURE Last Admin: 10/02/19 08:06 Dose: 5 mg Documented by: Azithromycin 500 mg/ Dextrose 255 mls @ 250 mls/hr IV Q24@2200 [facility] Stop: 10/02/19 23:02 Last Infusion: 10/01/19 21:15 Dose: Infused Documented by: Sodium Chloride () 250 mls @ 15 mls/hr IV .[id number] PRN PRN Reason: Saline Flush Losartan Potassium (Cozaar) 25 mg PO DAILY [facility] Last Admin: 10/02/19 09:41 Dose: 25 mg Documented by: Melatonin (Melatonin) 3 mg PO QHS PRN PRN PRN Reason: INSOMNIA Last Admin: 10/01/19 20:53 Dose: 3 mg Documented by: Methylprednisolone (Solu-Medrol) 40 mg IV Q8 [facility] Last Admin: 10/02/19 05:29 Dose: 40 mg Documented by: Ondansetron HCl (Zofran) 4 mg IV Q8H PRN PRN PRN Reason: NAUSEA/VOMITING Sodium Chloride () 10 - 40 ml IV UD PRN PRN Reason: SALINE FLUSH Last Admin: 10/01/19 20:05 Dose: 10 ml Documented by: STROKE Vital Signs/Narrative: Vital Signs Temp Pulse Resp BP BP Pulse Ox 10/02/19 11:18 88 12 10/02/19 09:55 76 18 182/94 H 94 10/02/19 08:23 98.1 F 78 18 169/114 H 94 Medical Necessity - Tobacco Use Smoking Status: Former smoker Tobacco Use: Cigarettes Assessment/Plan All Active Problems (Last Updated 10/01/19 @ 04:[address] Fernando Galicia MD) COPD (chronic obstructive pulmonary disease) (Acute) 1. COPD exacerbation - severe changes in lung structure on CT, pt has little functional lung tissue remaining. 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 He quit smoking 2 years ago but continues to have 2nd and 3rd hand smoke exposure. Continue incentive spirometer, aerosols, azithro, solumedrol. 2. Polycythemia - suspect 2/2 above 3. HTN - uncontrolled. losartan added today. DVT ppx: lovenox DC planning: pt will likely require o2 at dc. Follow up with pulmonology will be essential This patient was seen by Trevor Malcolm PA-C under the supervision of Dr. Wilcox. <Ruthie Wilcox - Last Filed: 10/02/19 13:55> Vitals/I&O's: Vital Signs Temp Pulse Resp BP Pulse Ox 98.4 F 96 18 156/94 H 94 10/02/19 13:28 10/02/19 13:28 10/02/19 13:28 10/02/19 13:28 10/02/19 13:28 Oxygen Flow Rate (L/min) 2 Oxygen Delivery Method Nasal Cannula Weight: 190 lb 4.143 oz Body Mass Index (BMI) 25.8 Intake and Output for Last 24 Hours 09/30/19 10/01/19 10/02/19 23:59 23:59 23:59 Intake Total 1709 950 / 950 Balance 1709 950 / 950 Laboratory Results 10/02/19 08:15: WBC 18.8 H, RBC 4.93, Hgb 17.6 H, Hct 51.8, MCV 105.1 H, MCH 35.7 H, MCHC 34.0, RDW Std Deviation 49.1 H, RDW Coeff of Tim 12.6, Plt Count 316, MPV 9.2, Immature Gran % (Auto) 0.500, Neut % (Auto) 84.3 H, Lymph % (Auto) 8.1 L, Stearns % (Auto) 6.9, Eos % (Auto) 0.0, Baso % (Auto) 0.2, Absolute Neuts (auto) 15.8 H, Absolute Lymphs (auto) 1.53, Nucleated RBC % 0 10/02/19 08:15: Sodium 138, Potassium 4.3, Chloride 110 H, Carbon Dioxide 24.0, Anion Gap 4 L, BUN 17, Creatinine 0.62 L, Estim Creat Clear Calc 137.33, Est GFR (MDRD) Af Amer 170, Est GFR (MDRD) Non-Af 140, BUN/Creatinine Ratio 27.5 H, Glucose 120 H, Calcium 9.4 Current Medications Acetaminophen (Tylenol) 650 mg PO Q6H PRN PRN PRN Reason: Pain Score 1-10/Temp > 100.7 F Last Admin: 10/02/19 09:41 Dose: 650 mg Documented by: Albuterol Sulfate (Ventolin Aerosols) 2.5 mg INHALATION Q2H PRN PRN PRN Reason: Shortness of Breath/Wheezing Last Admin: 10/01/19 21:07 Dose: 2.5 mg Documented by: Albuterol/Ipratropium (Duoneb) 3 ml INHALATION Q4HWA.RT [facility] Last Admin: 10/02/19 11:18 Dose: 3 ml Documented by: Enoxaparin Sodium (Lovenox) 40 mg SC DAILY [facility] Last Admin: 10/02/19 09:41 Dose: 40 mg Documented by: Guaifenesin (Mucinex) 1,200 mg PO BID [facility] Last Admin: 10/02/19 09:39 Dose: 1,200 mg Documented by: Hydralazine HCl (Apresoline Iv) 5 mg IV Q4H PRN PRN PRN Reason: BLOOD PRESSURE Last Admin: 10/02/19 08:06 Dose: 5 mg Documented by: Azithromycin 500 mg/ Dextrose 255 mls @ 250 mls/hr IV Q24@2200 [facility] Stop: 10/02/19 23:02 Last Infusion: 10/01/19 21:15 Dose: Infused Documented by: Sodium Chloride () 250 mls @ 15 mls/hr IV .[id number] PRN PRN Reason: Saline Flush Losartan Potassium (Cozaar) 25 mg PO DAILY [facility] Last Admin: 10/02/19 09:41 Dose: 25 mg Documented by: Melatonin (Melatonin) 3 mg PO QHS PRN PRN PRN Reason: INSOMNIA Last Admin: 10/01/19 20:53 Dose: 3 mg Documented by: Methylprednisolone (Solu-Medrol) 40 mg IV Q8 [facility] Last Admin: 10/02/19 13:14 Dose: 40 mg Documented by: Ondansetron HCl (Zofran) 4 mg IV Q8H PRN PRN PRN Reason: NAUSEA/VOMITING Sodium Chloride () 10 - 40 ml IV UD PRN PRN Reason: SALINE FLUSH Last Admin: 10/02/19 13:14 Dose: 10 ml Documented by: STROKE Vital Signs/Narrative: Vital Signs Temp Pulse Resp BP BP Pulse Ox 10/02/19 13:28 98.4 F 96 18 156/94 H 94 10/02/19 11:18 88 12 10/02/19 09:55 76 18 182/94 H 94 Assessment/Plan Patient seen by Trevor Malcolm PA-C under my supervision. Seen and examined today. He feels her shortness of breath is getting better today but still not at his baseline. He admits to minimal wheezing. He denies chest pain, nausea vomiting or diarrhea. Review systems otherwise negative. Remains on 2 L of oxygen. O/E: Vital Signs Temp Pulse Resp BP Pulse Ox 98.4 F 96 18 156/94 H 94 10/02/19 13:28 10/02/19 13:28 10/02/19 13:28 10/02/19 13:28 10/02/19 13:28 General: Alert, Oriented x3, Cooperative, No apparent distress HEENT: Atraumatic, PERRLA, EOMI, Normocephalic Oral: Dry Mucosa Neck: Supple, No JVD, Negative Carotid Bruits Lungs: - -mildly diminished breath sounds bibasally, no wheezes or crackles. Cardiovascular: Regular rate, Regular Rhythm, Normal S1, Normal S2, No murmurs Abdomen: Bowel Sounds Present, Soft, Non Tender, Non-Distended, No Hepato- splenomegaly Extremities: No clubbing, No cyanosis, No edema, Capillary Refill Less than 3 Seconds Skin: No rashes, No breakdown Musculoskeletal: No Tenderness to Palpation of Joints or Extremities Lymphatic: No Cervical, Supraclavicular, or Inguinal Adenopathy Neurological: Cranial nerves II-XII grossly intact, Neuro grossly intact, Motor Exam 5/5 strength throughout Psych/Mental Status: Normal Affect, Appropriate, Alert and oriented to time, place, person, mood and affect Plan is continue IV Solu-Medrol and breathing treatments with duo nebs. Titrate oxygen to maintain saturation above 90%. Patient counseled that he would likely need oxygen to go home as he still gets short of breath with ambulation. Patient counseled to quit smoking and avoid second hand smoke on discharge. Rest as per Trevor Malcolm PA-C's notes which I have reviewed and endorsed. Inpatient E&M: 02221 Subs Hosp L2
[2019-10-02] MEDS: 0.9% Saline Lock 10 ML Syringe IV (13:14)
[2019-10-02] MEDS: MELATONIN 3 MG TABLET PO (22:16)
[2019-10-03 02:00] VITALS: BP 164/95; PULSE 83; RESP 18; TEMP 36.7; O2SAT 93
[2019-10-03 06:18] VITALS: O2SAT 93
[2019-10-03 07:36] VITALS: PULSE 90; RESP 15; O2SAT 92
[2019-10-03] MEDS: Ipratropium/Albuterol Sulfate 3 ML AMPUL.NEB INHALATION ×2 (07:36→11:41)
[2019-10-03 09:10] VITALS: BP 142/98; PULSE 84; RESP 18; TEMP 36.5; O2SAT 93
[2019-10-03] MEDS: guaiFENesin 1,200 MG Tablet 1200 MG PO (09:10)
[2019-10-03] MEDS: Enoxaparin 40 MG/0.4 ML Syringe SC (09:10)
[2019-10-03] MEDS: Losartan Potassium 25 MG Tablet PO (09:10)
--- NOTE | 2019-10-03 09:21 | CPS ---
Using PEP on own
[2019-10-03 09:23] VITALS: O2SAT 87; O2SAT 90
--- NOTE | 2019-10-03 10:02 | PCM.CONS.PUL ---
Reason for Consult Date of Consultation: 10/03/19 Reason for Consultation: Acute hypoxemic respiratory insufficiency/COPD with exacerbation. History of Present Illness: The patient is a 59-year-old male, with a history as outlined below, who presented to the emergency department on September 29 with complaints of progressive exertional shortness of breath. He reportedly has a history of COPD diagnosed by an unknown provider approximately 8 years ago. He has never been evaluated by clinical research director, he does not currently utilize supplemental oxygen at his baseline, prior to this hospitalization. He does have a 65-bmtr-ybyo smoking history, having quit completely 2 years ago. He only utilizes albuterol on an as-needed basis at his baseline. 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 On presentation to the emergency department, the patient was noted to be febrile and hypertensive. He was initially documented to be saturating 88% on room air. Initial laboratory evaluation revealed an elevated white blood cell count of 12,000. Hemoglobin was elevated to 17.7 g/dL. D-dimer was negative. Chemistry profile was within normal limits. Troponin was negative. Coronavirus PCR was negative. A CTA chest was obtained which revealed significant upper lobe emphysematous changes with giant bullae. The patient was subsequently admitted to the medical surgical floor where he was treated with azithromycin, scheduled bronchodilators and IV steroids. He does appear to have a new oxygen requirement based upon his ambulatory walk test. The patient is agreeable to outpatient pulmonary follow-up. Past Medical History Past Medical History (Chronic Problems): Chronic Problems (Last Updated 10/01/19 @ 04:[address] Fernando Galicia MD) Hep C w/o coma, chronic (Chronic) Medical History: Medical History (Last Updated 10/01/19 @ 04:[address] Fernando Galicia MD) COPD (chronic obstructive pulmonary disease) J44.9 Allergies latex Allergy (Severe, Verified 09/30/19 18:45) Other passed out after coming into contact with an avaca. Primary MD diagnosed him with a latex allergy Home Medications: Ambulatory Orders Medication Instructions Recorded Acetaminophen [Tylenol] 2,000 mg PO 4X/DAY PRN 07/22/17 Albuterol Aerosols [Ventolin 2.5 mg INHALATION BID 07/22/17 Aerosols] Amlodipine [Norvasc] 5 mg PO DAILY 07/22/17 Albuterol Sulfate [Albuterol 2 puff IH Q4H 09/30/19 Sulfate HFA] Ipratropium/Albuterol Sulfate 3 ml INHALATION Q6H #120 ampul.neb 10/03/19 [Duoneb] Losartan Potassium [Cozaar] 25 mg PO DAILY #30 tab 10/03/19 Prednisone See Taper PO UD #30 tab 10/03/19 hydrOXYzine pamoate capsule 50 mg PO TID PRN PRN #90 cap 10/03/19 [Vistaril pamoate capsule] Surgical History: - - Ankle fracture surgery. He has 2 screws in his ankle. Smoking Status: Former smoker Tobacco Use: Cigarettes Alcohol: None - *Family History Maternal History Items: - - Denies knowledge of maternal medical history Paternal History Items: - - Arthritis Review of Systems Constitutional: Denies: Chills, Fever Eyes: Denies: Blurred vision, Double vision HEENT: Denies: Head Aches, Sinus Congestion, Sinus Drainage Cardiovascular: Denies: Chest Pain, Palpitations Respiratory: Reports: Cough, Shortness of Breath Gastrointestinal: Denies: Abdominal Pain, Nausea, Vomiting Genitourinary: Denies: Dysuria Musculoskeletal: Denies: Joint Pain, Joint Tenderness Skin: Reports: Dryness Neurological: Denies: Numbness, Tingling, Focal weakness Psychiatric: Denies: Anxiety, Depression, Homicidal Ideations, Suicidal Ideations Hematologic/ Lymphatic: Denies: Easy Bruising, Easy Bleeding Objective: The patient's most recent lab work, culture data and imaging studies have all been personally reviewed. - Physical Exam Vitals/I&O's: Vital Signs Temp Pulse Resp BP Pulse Ox 97.7 F L 84 18 142/98 H 90 10/03/19 09:10 10/03/19 09:10 10/03/19 09:10 10/03/19 09:10 10/03/19 09:23 Oxygen Flow Rate (L/min) [ 4 AMBULATION with Oxygen] Oxygen Flow Rate (L/min) 2 Oxygen Delivery Method Nasal Cannula Weight: 190 lb 4.143 oz Body Mass Index (BMI) 25.8 Intake and Output for Last 24 Hours 10/01/19 10/02/19 10/03/19 23:59 23:59 23:59 Intake Total 1709 1205 / 1205 Balance 1709 1205 / 1205 General: Alert, Cooperative, No apparent distress, - - Sitting in bedside recliner. HEENT: Atraumatic, Normocephalic Oral: Moist Mucosa, No Gingival or Mucosal Lesions/ Ulcerations Neck: Supple, No Nodes, Trachea Midline Lungs: - - Globally diminished air movement bilaterally. Prolonged expiratory phase. No accessory muscle use. Speaking in full sentences. Cardiovascular: Regular rate, Regular Rhythm Abdomen: Bowel Sounds Present, Soft, Non Tender Extremities: No clubbing, No cyanosis, No edema Skin: No breakdown Musculoskeletal: No Tenderness to Palpation of Joints or Extremities, No Muscle Wasting Lymphatic: No Cervical, Supraclavicular, or Inguinal Adenopathy Neurological: Cranial nerves II-XII grossly intact, Neuro grossly intact Psych/Mental Status: Alert and oriented to time, place, person, mood and affect Labs (Last 48 Hours) 10/02/19 10/02/19 08:15 08:15 WBC 18.8 H RBC 4.93 Hgb 17.6 H Hct 51.8 MCV 105.1 H MCH 35.7 H MCHC 34.0 RDW Std Deviation 49.1 H RDW Coeff of Tim 12.6 Plt Count 316 MPV 9.2 Immature Gran % (Auto) 0.500 Neut % (Auto) 84.3 H Lymph % (Auto) 8.1 L [place] % (Auto) 6.9 Eos % (Auto) 0.0 Baso % (Auto) 0.2 Absolute Neuts (auto) 15.8 H Absolute Lymphs (auto) 1.53 Nucleated RBC % 0 Sodium 138 Potassium 4.3 Chloride 110 H Carbon Dioxide 24.0 Anion Gap 4 L BUN 17 Creatinine 0.62 L Estim Creat Clear Calc 137.33 Est GFR (MDRD) Af Amer 170 Est GFR (MDRD) Non-Af 140 BUN/Creatinine Ratio 27.5 H Glucose 120 H Calcium 9.4 Clinical Impression(s) from Imaging Studies Chest X-Ray 09/30/19 18:55 IMPRESSION: Increased lung opacity, possibly acute disease, refer to definitive assessment with CT chest. Massive right upper lung bulla with right lower lobe compression. Electronically Signed: Akila Beebe, at 19:14 EDT Tel , Service support , Chest CTA 09/30/19 20:08 IMPRESSION: 1. No pulmonary embolism 2. Right lower lobe atelectasis. 3. Severe emphysema. No acute pulmonary disease. Electronically Signed: Akila Beebe, at 20:39 EDT Tel , Service support , Current Medications Acetaminophen (Tylenol) 650 mg PO Q6H PRN PRN PRN Reason: Pain Score 1-10/Temp > 100.7 F Last Admin: 10/02/19 17:13 Dose: 650 mg Documented by: Albuterol Sulfate (Ventolin Aerosols) 2.5 mg INHALATION Q2H PRN PRN PRN Reason: Shortness of Breath/Wheezing Last Admin: 10/01/19 21:07 Dose: 2.5 mg Documented by: Albuterol/Ipratropium (Duoneb) 3 ml INHALATION Q4HWA.RT [facility] Last Admin: 10/03/19 07:36 Dose: 3 ml Documented by: Enoxaparin Sodium (Lovenox) 40 mg SC DAILY [facility] Last Admin: 10/03/19 09:10 Dose: 40 mg Documented by: Guaifenesin (Mucinex) 1,200 mg PO BID [facility] Last Admin: 10/03/19 09:10 Dose: 1,200 mg Documented by: Hydralazine HCl (Apresoline Iv) 5 mg IV Q4H PRN PRN PRN Reason: BLOOD PRESSURE Last Admin: 10/02/19 08:06 Dose: 5 mg Documented by: Hydroxyzine Pamoate (Vistaril Pamoate Capsule) 50 mg PO TID PRN PRN PRN Reason: ANXIETY Sodium Chloride () 250 mls @ 15 mls/hr IV .[id number] PRN PRN Reason: Saline Flush Losartan Potassium (Cozaar) 25 mg PO DAILY [facility] Last Admin: 10/03/19 09:10 Dose: 25 mg Documented by: Melatonin (Melatonin) 3 mg PO QHS PRN PRN PRN Reason: INSOMNIA Last Admin: 10/02/19 22:16 Dose: 3 mg Documented by: Methylprednisolone (Solu-Medrol) 40 mg IV Q8 [facility] Last Admin: 10/03/19 06:13 Dose: 40 mg Documented by: Ondansetron HCl (Zofran) 4 mg IV Q8H PRN PRN PRN Reason: NAUSEA/VOMITING Sodium Chloride () 10 - 40 ml IV UD PRN PRN Reason: SALINE FLUSH Last Admin: 10/02/19 13:14 Dose: 10 ml Documented by: Assessment/Plan All Active Problems (Last Updated 10/01/19 @ 04:[address] Fernando Galicia MD) COPD (chronic obstructive pulmonary disease) (Acute) RECOMMENDATIONS: 1. Continue supplemental oxygen to maintain saturations at or above 90%. 2. Continue scheduled bronchodilator therapy. At discharge, please provide with prescription for duo nebs. 3. Continue IV steroids. Okay to transition to prednisone with plans for a prolonged steroid taper. 4. The patient will require home-going supplemental oxygen. 5. The patient should follow-up in the pulmonary medicine clinic within 2 weeks of discharge. Outpatient PFTs will need to be obtained. The patient would likely benefit from being started on long-acting bronchodilator therapy as well. IMPRESSIONS: 1. Acute hypoxemic respiratory insufficiency likely secondary to COPD with exacerbation The patient does have a self-reported history of COPD of unknown severity. He has never been evaluated by a clinical research director, nor has he ever completed a full set of pulmonary function studies. He does have significant emphysema with bullous changes noted on CT chest. In addition, he does have what appears to be secondary polycythemia, raising the concern for chronic hypoxemia. The patient is only utilizing short acting bronchodilators in his home environment at his baseline. He has improved symptomatically on scheduled bronchodilators and IV steroids while admitted to the hospital. I would recommend that at discharge he be sent home with a prescription for scheduled DuoNeb therapy along with prednisone with a prolonged taper. He will require supplemental oxygen at discharge. He should follow-up in the pulmonary medicine clinic within 2 weeks so that orders for baseline PFTs can be placed. In addition, the patient will likely require the initiation of long-acting bronchodilator therapy. 2. History of tobacco dependency, currently in remission Ongoing smoking cessation was strongly recommended. 3. Hypertension The patient was notably hypertensive on admission to the hospital. Blood pressures have improved with medical intervention. This note was generated with [employer] software. It may contain incorrect words, spelling, and punctuation that were not noted in checking the note before signing. Inpatient E&M: 14827 Init Hosp L3
--- NOTE | 2019-10-03 10:48 | CASEMGMT ---
KIMBERLY KLEIN updated that patient qualifies for home oxygen. KIMBERLY CM in and provided DME companies to patient and would like [employer]. Script received and referral sent to [facility], arranged for delivery to patient's room prior to discharge. Patient had no further questions or concerns.
--- NOTE | 2019-10-03 11:37 | DCINST_ITS ---
You will use the following diet at home:: Cardiac Your food should be the consistency of: Regular Your liquids should be the consistency of: Regular/Thin Discharge Activity: Return to Normal Activity Call your doctor if you observe: Shortness of breath Additional Instructions: You need to avoid any exposure to smoke from nicotine or any other source. Allergies/Adverse Reactions: Allergies latex Allergy (Severe, Verified 09/30/19 18:45) Other passed out after coming into contact with an [place]acado. Primary MD diagnosed him with a latex allergy Medications to take at Discharge Acetaminophen [Tylenol] 2,000 mg PO 4X/DAY PRN 07/22/17 Albuterol Aerosols [Ventolin Aerosols] 2.5 mg INHALATION BID 07/22/17 Amlodipine [Norvasc] 5 mg PO DAILY 07/22/17 Albuterol Sulfate [Albuterol Sulfate HFA] 2 puff IH Q4H 09/30/19 Ipratropium/Albuterol Sulfate [Duoneb] 3 ml INHALATION Q6H #120 ampul.neb 10/03/19 Losartan Potassium [Cozaar] 25 mg PO DAILY #30 tab 10/03/19 Prednisone See Taper PO UD #30 tab 10/03/19 hydrOXYzine pamoate capsule [Vistaril pamoate capsule] 50 mg PO TID PRN PRN #90 cap 10/03/19 The following prescriptions were given: Losartan Potassium [Cozaar] 25 mg PO DAILY #30 tab Transmission Status: Pending to [facility] Ipratropium/Albuterol Sulfate [Duoneb] 3 ml INHALATION Q6H #120 ampul.neb Transmission Status: Pending to [facility] Prednisone See Taper PO UD #30 tab Transmission Status: Pending to [facility] hydrOXYzine pamoate capsule [Vistaril pamoate capsule] 50 mg PO TID PRN PRN #90 cap PRN Reason: Anxiety Transmission Status: Pending to [facility] Primary Care Physician: Faith James DO [Primary Care Provider] - Please follow up with your Primary Care Physician in: 1-2 weeks Test Results: Test results from this visit will be discussed in further detail at your follow- up appointment, if applicable. Please Follow Up With: Ernesto Rich DO When: 2 weeks Proposed Discharge Date: 10/03/19
[2019-10-03 11:41] VITALS: PULSE 85; RESP 18
[2019-10-03 12:55] LABS: Pathologist Review Reviewed
--- NOTE | 2019-10-03 13:17 | PCM.DC.SUM ---
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 Fernando Galicia MD) Hep C w/o coma, chronic (Chronic) Hospital Course and Treatment Imaging Results: IMAGING: RAD/Chest 1 View (Portable) IMPRESSION: Increased lung opacity, possibly acute disease, refer to definitive assessment with CT chest. Massive right upper lung bulla with right lower lobe compression. CT/CTA Chest W/WO Contrast IMPRESSION: 1. No pulmonary embolism 2. Right lower lobe atelectasis. 3. Severe emphysema. No acute pulmonary disease. Consults: Pulmonary Medicine - [facility] Operations: None Procedures: None Summary of Care Provided: Hospital course: The patient is a 59 year old M with pmhx of COPD and former nicotine abuse, hx HTN, Hep C, who presented to the ER with c/o severe SOB with exertion, productive cough, and wheezes. He had a recent negative COVID test. CXR showed massive bulla and RLL compression, and CTA showed severe pulmonary disease and bulla. He was admitted to the med surg floor for COPD exacerbation. He was treated with steroids and aerosols. He gradually improved however was still unable to be weaned off O2. He required up to 4lpm o2 with exertion. He is active at home and in the community and will require supplemental Oxygen at discharge in order to maintain adequate sats. The patient had never seen a cigar sorter. I discussed the case with Pulmonology who recommended a steroid taper, duonebs, and close follow up for further workup regarding his severe emphysema. He was discharged home in stable condition. He should also follow up with his PCP in 1-2 weeks. Also of note his still smokes in the garage at home and in the car, and I discussed the need for absolute avoidance of smoke exposure, and explained the risks of secondhand and thirdhand smoke exposure to him. The patient has not smoked in 2 years. Lastly, he was started on losartan in addition to his amlodipine as his blood pressure was uncontrolled while here. This patient was seen by Trevor Malcolm PA-C under the supervision of Doctor Brenden. [] - Physical Exam Vitals/I&O's: Vital Signs Temp Pulse Resp BP Pulse Ox 97.7 F L 84 18 142/98 H 90 10/03/19 09:10 10/03/19 09:10 10/03/19 09:10 10/03/19 09:10 10/03/19 09:23 Oxygen Flow Rate (L/min) [ 4 AMBULATION with Oxygen] Oxygen Flow Rate (L/min) 2 Oxygen Delivery Method Nasal Cannula Weight: 190 lb 4.143 oz Body Mass Index (BMI) 25.8 Intake and Output for Last 24 Hours 10/01/19 10/02/19 10/03/19 23:59 23:59 23:59 Intake Total 1709 1205 / 1205 Balance 1709 1205 / 1205 General: Alert, Oriented x3, Cooperative HEENT: Atraumatic, PERRLA, EOMI, Normocephalic Neck: Supple, No JVD, Negative Carotid Bruits Lungs: Clear to auscultation, Diminished Cardiovascular: Regular rate, No murmurs Abdomen: Bowel Sounds Present, Soft, Non Tender Extremities: No edema, Capillary Refill Less than 3 Seconds Skin: No rashes, No breakdown Musculoskeletal: No Tenderness to Palpation of Joints or Extremities Neurological: Cranial nerves II-XII grossly intact Psych/Mental Status: Normal Affect, Appropriate, Alert and oriented to time, place, person, mood and affect Laboratory Results 10/01/19 06:55: Diff Path Review Reviewed Discharge Diet: Low fat/ Low Cholesterol, 2000 mg Sodium Diet Discharge Activity: Return to Normal Activity Call your doctor if you observe: Shortness of breath Home Medications: Medications to take at Discharge Acetaminophen [Tylenol] 2,000 mg PO 4X/DAY PRN 07/22/17 Albuterol Aerosols [Ventolin Aerosols] 2.5 mg INHALATION BID 07/22/17 Amlodipine [Norvasc] 5 mg PO DAILY 07/22/17 Albuterol Sulfate [Albuterol Sulfate HFA] 2 puff IH Q4H 09/30/19 Ipratropium/Albuterol Sulfate [Duoneb] 3 ml INHALATION Q6H #120 ampul.neb 10/03/19 Losartan Potassium [Cozaar] 25 mg PO DAILY #30 tab 10/03/19 Prednisone See Taper PO UD #30 tab 10/03/19 hydrOXYzine pamoate capsule [Vistaril pamoate capsule] 50 mg PO TID PRN PRN #90 cap 10/03/19 Following Prescriptions Were Given to Patient: Losartan Potassium [Cozaar] 25 mg PO DAILY #30 tab Transmission Status: Received by [facility] Ipratropium/Albuterol Sulfate [Duoneb] 3 ml INHALATION Q6H #120 ampul.neb Transmission Status: Received by [facility] Prednisone See Taper PO UD #30 tab Transmission Status: Received by [facility] hydrOXYzine pamoate capsule [Vistaril pamoate capsule] 50 mg PO TID PRN PRN #90 cap PRN Reason: Anxiety Transmission Status: Received by [facility] Primary Care Physician: Faith James DO [Primary Care Provider] - Please follow up with your Primary Care Physician in: 1-2 weeks Please Follow Up With: Ernesto Rich DO When: 2 weeks Please Follow Up With: Erika Cuevas DO Disposition: Home Minutes spent on discharge:: 35 Patient Condition:: Stable Medical Necessity - Tobacco Use Smoking Status: Former smoker Tobacco Use: Cigarettes Meaningful Use Info Meaningful Use Diagnoses (Choose all that apply): None applicable <Ruthie Wilcox - Last Filed: 10/03/19 15:14> Discharge Date and Diagnosis - Secondary Discharge Diagnosis Chronic Problems: Chronic Problems (Last Updated 10/01/19 @ 04:[address] Fernando Galicia MD) Hep C w/o coma, chronic (Chronic) Hospital Course and Treatment Summary of Care Provided: Patient seen by Trevor Malcolm PA-C under my supervision The patient is a 59 year old M with a past medical history of COPD and nicotine dependence which he had stopped 2 years ago, hypertension and hepatitis C. He was admitted through the ED on 09/30/2019 with a complaint of severe shortness of breath with exertion as well as wheezing and a productive cough. Cover test was negative. Chest x-ray done showed massive: Right lower lobe compression. She was admitted and managed for acute COPD exacerbation and acute hypoxic respiratory failure due to COPD exacerbation. CT of the chest done severe pulmonary disease with no evidence of PE. He was put on breathing treatments with bronchodilators and IV Solu-Medrol. He was also initially put on IV azithromycin. Patient's shortness of breath gradually improved but he was still could not be weaned off of oxygen and required home oxygen as saturation dropped with ambulation to 87% on room air and he required 4 L of oxygen to come up to 90%. Pulmonology was also consulted for patient to establish care and follow-up on outpatient basis. Patient was discharged home on 10/03/2019 with a steroid taper and breathing treatments with bronchodilators. Blood pressure had been poorly controlled during admission and losartan was added on in addition to his amlodipine to help control blood pressure. Patient was discharged on 10/03/2019 and is to follow-up with his primary care doctor and pulmonology in 1 to 2 weeks. Patient seen and examined prior to discharge. He felt much better than when he came in and said his shortness of breath had improved. He denied any wheezing, cough or chest pain. Review of signs otherwise negative. Labs and vitals reviewed. Home medication reviewed and reconciled. O/E: Vital Signs Temp Pulse Resp BP Pulse Ox 97.7 F L 85 18 142/98 H 90 10/03/19 09:10 10/03/19 11:41 10/03/19 11:41 10/03/19 09:10 10/03/19 09:23 [] General: Alert, Oriented x3, Cooperative, No apparent distress HEENT: Atraumatic, PERRLA, EOMI, Normocephalic Oral: Dry Mucosa Neck: Supple, No JVD, Negative Carotid Bruits Lungs: - -mildly diminished breath sounds bibasally, no wheezes or crackles. on 4L of oxygen Cardiovascular: Regular rate, Regular Rhythm, Normal S1, Normal S2, No murmurs Abdomen: Bowel Sounds Present, Soft, Non Tender, Non-Distended, No Hepato-splenomegaly Extremities: No clubbing, No cyanosis, No edema, Capillary Refill Less than 3 Seconds Skin: No rashes, No breakdown Musculoskeletal: No Tenderness to Palpation of Joints or Extremities Lymphatic: No Cervical, Supraclavicular, or Inguinal Adenopathy Neurological: Cranial nerves II-XII grossly intact, Neuro grossly intact, Motor Exam 5/5 strength throughout Psych/Mental Status: Normal Affect, Appropriate, Alert and oriented to time, place, person, mood and affect Plan is for discharge home today on 4 L of home oxygen. - Physical Exam Vitals/I&O's: Vital Signs Temp Pulse Resp BP Pulse Ox 97.7 F L 85 18 142/98 H 90 10/03/19 09:10 10/03/19 11:41 10/03/19 11:41 10/03/19 09:10 10/03/19 09:23 Oxygen Flow Rate (L/min) [ 4 AMBULATION with Oxygen] Oxygen Flow Rate (L/min) 2 Oxygen Delivery Method Nasal Cannula Weight: 190 lb 4.143 oz Body Mass Index (BMI) 25.8 Intake and Output for Last 24 Hours 10/01/19 10/02/19 10/03/19 23:59 23:59 23:59 Intake Total 1709 1205 / 1205 Balance 1709 1205 / 1205 Laboratory Results 10/01/19 06:55: Diff Path Review Reviewed Inpatient E&M: [id number] Disch Hosp
--- NOTE | 2019-10-04 16:04 | CASEMGMT ---
RN CM DC PHONE CALL DC DATE: 10/03/19 DC DISPOSITION: Home with oxygen DC DIAGNOSIS: COPD LACE/STRATA: 12/12 F/U APPTS MADE PRIOR TO DC: yes No answer to call, messaging had name identifier. Message left with call back information if patient had questions. Aviva BURR RN ACM
== END 2019-10-03 12:55 | disposition home or self-care (01) | DRG 190 ==
LOC: ED 19:25 → MS3 10-01 03:57
PROVIDERS: Admitting Provider Hospitalist; Emergency Provider Emergency Medicine; PCP Internal Medicine; Visit Provider Student in an Organized Health Care Education/Training Program
DX: J44.1 Chronic obstructive pulmonary disease with (acute) exacerbation (principal); J96.01 Acute respiratory failure with hypoxia; J98.11 Atelectasis; D75.1 Secondary polycythemia; B18.2 Chronic viral hepatitis C; I10 Essential (primary) hypertension; Z87.891 Personal history of nicotine dependence
CPT/HCPCS: 36415; 71045; 71275; 80048; 84484; 85025; 85379; 87635; 93005; 94640; 94667; 94668; 94799; 99251; 99283; Q9967; A4216; G0463; U0003

== ENCOUNTER → 2019-12-02 07:00 | Outpatient (CLI) | payer OTHER, SELFPAY ==
[2019-10-18 08:48] VITALS: BMI 26.6
--- NOTE | 2019-12-04 12:29 | PFT ---
INTRODUCTION: The patient is a 59-year-old male that presents for pulmonary function studies secondary to a diagnosis of COPD. Respiratory therapy reports good patient effort. Bronchodilators were used during testing. INTERPRETATION: Forced expiration spirometry demonstrates the presence of a very severe large airways obstructive ventilatory defect. There was a significant response to aerosolized bronchodilators. Spirograms are of good quality and do not plateau indicating slow emptying of the lungs. Body plethysmography was performed and reveals a decreased TLC to 4.38 L, 61% of predicted, indicative of a moderate restrictive ventilatory impairment. The remainder of the lung volumes are symmetrically reduced. Diffusing capacity by single breath CO is severely reduced at 41% of predicted. IMPRESSION: Partially reversible very severe mixed ventilatory defect with symmetric reduction in diffusing capacity.
== END ==
PROVIDERS: PCP Internal Medicine; Referring Provider Nurse Practitioner Acute Care; Visit Provider Nurse Practitioner Acute Care
DX: J44.9 Chronic obstructive pulmonary disease, unspecified (principal)
CPT/HCPCS: 94060; 94726; 94729

== ENCOUNTER → 2020-02-09 12:26 | Outpatient (CLI) | payer OTHER, SELFPAY ==
[2019-10-18 08:48] VITALS: BMI 26.6
[2020-02-09 12:54] VITALS: PULSE 100; PULSE 101; PULSE 86; PULSE 87; PULSE 90; PULSE 92; PULSE 93; PULSE 97; O2SAT 82; O2SAT 84; O2SAT 86; O2SAT 89; O2SAT 91; O2SAT 93
--- NOTE | 2020-02-09 12:59 | CPS ---
Patient came in on own O2 tank, wears 4 lpm pulse dose. Patient wears 4 lpm continuous at home and as often as he can. He monitors SpO2 well at home. Room air reading before testing was 86%. Placed patient on 4 lpm pulse dose and recovered to 91% before testing. Patient walked a great pace for 2 minutes, at the 2 minute nolvia, SpO2 82%. Stopped patient at this time and placed patient on 4 lpm continuous flow O2. SpO2 recovered to 93% and patient was ready to walk again. At the 4th minute SpO2 84%, I stopped the patient for a 30 second break at this time. SpO2 recovered to 90%. Patient walked the last minute and a half with an ending SpO2 of 86%. Patient stated that he was starting to get severely short of breath and does not usually push himself that much. Patient is very active at home and work and is very in tune with his oxygen need and symptoms.
--- NOTE | 2020-02-11 10:24 | WT_ITS ---
PSN 6 Minute Walk Test - 6 Minute Walk Test 6 Minute Walk Test: 6 Minute Walk Test PSN:6-Minute Walk Test Start: 02/09/20 12:54 Freq: Status: Active Protocol: RESP.6MINW Document 02/09/20 12:54 JERRY (Rec: 02/09/20 13:06 JERRY [id number]) 6 Minute Walk Test Date Performed 02/09/20 Time Performed 12:30 Height 6 ft Weight: 190 lb Weight in Pounds 190.[address]: Micaela Hoskins APARTMENT MAINTENANCE MANAGER Assistive device used: None Pre-test Oxygen Flow Rate (L/min) (L/min) 4 Oxygen Delivery Method Nasal Cannula Pulse Ox (%) 91 Pulse Rate (60-100 beats/min) 86 Dyspnea Adilene Scale (0-10) 0 Exertion Adilene Scale (6-20) 6 1st minute Oxygen Flow Rate (L/min) (L/min) 4 Oxygen Delivery Method Nasal Cannula Pulse Ox (%) 89 Pulse Rate (60-100 beats/min) 101 H 2nd minute Oxygen Flow Rate (L/min) (L/min) 4 Oxygen Delivery Method Nasal Cannula Pulse Ox (%) 82 Pulse Rate (60-100 beats/min) 93 Dyspnea Adilene Scale (0-10) 4 3rd minute Oxygen Flow Rate (L/min) (L/min) 4 Oxygen Delivery Method Nasal Cannula Pulse Ox (%) 89 Pulse Rate (60-100 beats/min) 90 4th minute Oxygen Flow Rate (L/min) (L/min) 4 Oxygen Delivery Method Nasal Cannula Pulse Ox (%) 84 Pulse Rate (60-100 beats/min) 97 Number of Rests Taken 1 5th minute Oxygen Flow Rate (L/min) (L/min) 4 Oxygen Delivery Method Nasal Cannula Pulse Ox (%) 89 Pulse Rate (60-100 beats/min) 92 6th minute Oxygen Flow Rate (L/min) (L/min) 4 Oxygen Delivery Method Nasal Cannula Pulse Ox (%) 86 Pulse Rate (60-100 beats/min) 100 Dyspnea Adilene Scale (0-10) 5 Exertion Adilene Scale (6-20) 12 Post-test Oxygen Flow Rate (L/min) (L/min) 4 Oxygen Delivery Method Nasal Cannula Pulse Ox (%) 93 Pulse Rate (60-100 beats/min) 87 Full Laps Walked 15 Partial Lap, Number of Tiles Walked 20 Total Distance Walked (ft) 905 02/09/20 12:59 Cardiopulmonary Services by Vera Rojas Patient came in on own O2 tank, wears 4 lpm pulse dose. Patient wears 4 lpm continuous at home and as often as he can. He monitors SpO2 well at home. Room air reading before testing was 86%. Placed patient on 4 lpm pulse dose and recovered to 91% before testing. Patient walked a great pace for 2 minutes, at the 2 minute nolvia, SpO2 82%. Stopped patient at this time and placed patient on 4 lpm continuous flow O2. SpO2 recovered to 93% and patient was ready to walk again. At the 4th minute SpO2 84%, I stopped the patient for a 30 second break at this time. SpO2 recovered to 90%. Patient walked the last minute and a half with an ending SpO2 of 86%. Patient stated that he was starting to get severely short of breath and does not usually push himself that much. Patient is very active at home and work and is very in tune with his oxygen need and symptoms. Initialized on 02/09/20 12:59 - END OF NOTE - Interpretation Interpretation: The patient ambulated 905 feet over the course of 6 minutes beginning on room air without assistive devices. Pretesting oxygen saturation was noted to be 86% on room air. 4 L/min of pulsed dose supplemental oxygen was applied to commence testing. With ambulation, the blake oxygen saturation was 82%. The patient was then transition to continuous flow supplemental oxygen at 4 L/min to complete the remainder of the test. Despite the aforementioned flow rate, the patient continued to have oxygen desaturations with exertion. - Recommendations Recommendations: Continuous flow supplemental oxygen at a rate of 4 to 6 L/min should be utilized with exertion. 4 L/min of pulsed dose supplemental oxygen can be utilized while at rest.
== END ==
PROVIDERS: PCP Internal Medicine; Referring Provider Nurse Practitioner Acute Care; Visit Provider Nurse Practitioner Acute Care
DX: J44.9 Chronic obstructive pulmonary disease, unspecified (principal)
CPT/HCPCS: 94618

== ENCOUNTER → 2020-06-05 12:23 | Outpatient (CLI) | payer OTHER, SELFPAY ==
[2020-05-10 07:34] VITALS: BMI 25.6
[2020-06-05 13:07] VITALS: PULSE 76; PULSE 79; PULSE 80; PULSE 81; PULSE 83; PULSE 86; O2SAT 84; O2SAT 85; O2SAT 86; O2SAT 87; O2SAT 89; O2SAT 90; O2SAT 92
--- NOTE | 2020-06-05 13:13 | CPS ---
PATIENT ARRIVED ON HIS OWN PORTABLE DEVICE FROM [facility] [place]ACED ON RA PRIOR TO START OF TEST. SPO2 AT 87%, BEGAN TESTING ON 1LPM DEMAND FLOW, INCREASED TO 2LPM DEMAND THEN 3LPM DEMAND. AT 3MIN OF TEST, PT WAS CHANGED TO CONTINUOUS FLOW AT 2LPM FOR SPO2 MID 80'S. HE WAS THEN INCREASED TO 4LPM CONT. FLOW FOR SPO2 86%, (HIS CONSERVING DEVICE ONLY HAS 2LPM/4LPM CONT FLOW OPTIONS) REMAINDER OF TEST ON 4LPM CONT FLOW. DENIED SOB DURING TEST, QUICK BREAKS TAKEN ONLY TO CHANGE FLOW, SPO2 RECOVERS QUICKLY.
--- NOTE | 2020-06-05 14:45 | PCM.PSN.6M ---
PSN 6 Minute Walk Test 6 Minute Walk Test 6 Minute Walk Test: 6 Minute Walk Test PSN:6-Minute Walk Test Start: 06/05/20 13:07 Freq: Status: Active Protocol: RESP.6MINW Document 06/05/20 13:07 [facility] (Rec: 06/05/20 13:19 [facility] [id number]) 6 Minute Walk Test Date Performed 06/05/20 Time Performed 12:30 Height 6 ft Weight: 86.183 kg Weight in Pounds 190.[address]: Ernesto Rich Assistive device used: None Pre-test Oxygen Delivery Method Room Air Pulse Ox (%) 87 Pulse Rate (60-100 beats/min) 79 1st minute Oxygen Flow Rate (L/min) (L/min) 1 Oxygen Delivery Method Nasal Cannula Pulse Ox (%) 85 Pulse Rate (60-100 beats/min) 80 Number of Rests Taken 0 2nd minute Oxygen Flow Rate (L/min) (L/min) 2 Oxygen Delivery Method Nasal Cannula Pulse Ox (%) 86 Pulse Rate (60-100 beats/min) 79 Dyspnea Adilene Scale (0-10) 0 Number of Rests Taken 0 3rd minute Oxygen Flow Rate (L/min) (L/min) 3 Oxygen Delivery Method Nasal Cannula Pulse Ox (%) 84 Pulse Rate (60-100 beats/min) 81 Dyspnea Adilene Scale (0-10) 0 Number of Rests Taken 0 4th minute Oxygen Flow Rate (L/min) (L/min) 2 Oxygen Delivery Method Nasal Cannula Pulse Ox (%) 86 Pulse Rate (60-100 beats/min) 83 Dyspnea Adilene Scale (0-10) 0 Reported Symptoms Increased Work of Breathing 5th minute Oxygen Flow Rate (L/min) (L/min) 4 Oxygen Delivery Method Nasal Cannula Pulse Ox (%) 90 Pulse Rate (60-100 beats/min) 86 Dyspnea Adilene Scale (0-10) 0 Number of Rests Taken 0 6th minute Oxygen Flow Rate (L/min) (L/min) 4 Oxygen Delivery Method Nasal Cannula Pulse Ox (%) 89 Pulse Rate (60-100 beats/min) 83 Number of Rests Taken 0 Post-test Oxygen Flow Rate (L/min) (L/min) 2 Oxygen Delivery Method Nasal Cannula Pulse Ox (%) 92 Pulse Rate (60-100 beats/min) 76 Dyspnea Adilene Scale (0-10) 0 Full Laps Walked 16 Partial Lap, Number of Tiles Walked 17 Total Distance Walked (ft) 961 06/05/20 13:13 Cardiopulmonary Services by Arlene Ralph PATIENT ARRIVED ON HIS OWN PORT[place] [facility] [place]ACED ON RA PRIOR TO START OF TEST. SPO2 AT 87%, BEGAN TESTING ON 1LPM DEMAND FLOW, INCREASED TO 2LPM DEMAND THEN 3LPM DEMAND. AT 3MIN OF TEST, PT WAS CHANGED TO CONTINUOUS FLOW AT 2LPM FOR SPO2 MID 80'S. HE WAS THEN INCREASED TO 4LPM CONT. FLOW FOR SPO2 86%, (HIS CONSERVING DEVICE ONLY HAS 2LPM/4LPM CONT FLOW OPTIONS) REMAINDER OF TEST ON 4LPM CONT FLOW. DENIED SOB DURING TEST, QUICK BREAKS TAKEN ONLY TO CHANGE FLOW, SPO2 RECOVERS QUICKLY. Initialized on 06/05/20 13:13 - END OF NOTE The patient was noted to be 87% on room air, but improved to 90% on 1 L demand. Over the course of the test, patient required up to 4 L continuous flow to maintain saturations. In total, the patient traveled 961 feet over the course of 6 minutes with no assistive devices or breaks. The patient should be using 2 L pulse dose at rest and 4 L continuous flow with any ambulation.
--- NOTE | 2020-06-05 14:46 | PFTCOMP ---
COMPLETE PULMONARY FUNCTION TEST INTERPRETATION Brief HPI: Patient is a 77 year old female, currently under the care of Karely Valdivia, who presents to [facility] for complete pulmonary function tests secondary to diagnosis of high risk med use. Respiratory therapist reports good effort and reproducible results. Interpretation: Forced expiration spirometry shows no large airways obstructive ventilatory defect with an FEV1 of 98% predicted. There is no significant bronchodilator response by strict ATS criteria. Spirograms are of good quality and plateau normally. The respiratory flow volume loop shows a normal pattern. Lung volumes by body plethysmography show a normal total lung capacity at 4.96 L, 100% predicted. All other lung volumes are within normal limits. Diffusion capacity by carbon monoxide is normal at 80% predicted. The airway resistance is normal. No previous pulmonary function tests were available for review. Impression: These pulmonary function tests are within normal limits.
== END ==
LOC: PSN 12:23
PROVIDERS: PCP Internal Medicine; Referring Provider Internal Medicine Critical Care Medicine; Visit Provider Internal Medicine Critical Care Medicine
DX: J96.11 Chronic respiratory failure with hypoxia (principal)
CPT/HCPCS: 94618

== ENCOUNTER → 2021-06-26 | Outpatient (CLI) | payer OTHER, SELFPAY ==
[2021-06-26 11:20] LABS: CPK Total, Creatine Kinase 152 U/L (39-308); Troponin-I HS 6 pg/mL (3.0-78.0)
== END | disposition home or self-care (01) ==
LOC: LABSPEC 10:48
PROVIDERS: PCP Internal Medicine; Referring Provider Internal Medicine; Visit Provider Internal Medicine
DX: R94.31 Abnormal electrocardiogram [ECG] [EKG] (principal)
CPT/HCPCS: 82550; 84484

== ENCOUNTER 2023-08-17 11:16 | Emergency (ER) | payer OTHER, SELFPAY ==
[2023-08-17 11:17] VITALS: BP 175/136; PULSE 100; RESP 18; TEMP 36.4; O2SAT 97; BMI 24.7
[2023-08-17 11:19] VITALS: BP 175/136; PULSE 103; RESP 16; TEMP 36.4; O2SAT 97
--- NOTE | 2023-08-17 12:04 | EDS_ITS ---
HPI History of Present Illness Chief Complaint: Upper Extremity Injury Narrative Narrative: 63-year-old male past medical history of COPD, [id number], presents with pain in his right elbow that is moved down to his wrist. He was seen at urgent care this morning and sent in with concern for septic arthritis versus cellulitis. He states that he had a large bump on the back of his elbow, and had difficulty moving his right elbow starting on Thursday, 4 days ago. While that has improved, he now has pain diffusely throughout his right wrist with mild redness. It hurts when he tries to flex and extend his right hand. He denies any fevers or chills, no nausea or vomiting, no other symptoms. He does state that he has history of arthritis in general and uses his right arm frequently. [facility] Medical History (Updated 08/17/23 @ 13:17 by Fred Rodrigez MD) Ankle fracture Respiratory failure with hypoxia Smoking greater than 40 pack years COPD (chronic obstructive pulmonary disease) Neck pain Hep C w/o coma, chronic COPD (chronic obstructive pulmonary disease) Home Medications ?Medication ?Instructions ?Recorded ?Last Taken ?Type acetaminophen 325 mg tablet 2,000 mg PO 4X/DAY PRN pain 07/22/17 09/30/19 12:00 History amlodipine 5 mg tablet 5 mg PO DAILY BP 07/22/17 09/30/19 05:00 History albuterol sulfate 90 mcg/actuation 2 puff IH Q4H breathing 09/30/19 09/30/19 23:10 History aerosol inhaler hydroxyzine pamoate 25 mg capsule 50 mg (2 x 25 mg) PO TID PRN PRN 10/03/19 Unknown Rx Anxiety #90 caps ipratropium 0.5 mg-albuterol 3 mg 3 ml inhalation Q6H ##120 10/03/19 Unknown Rx (2.5 mg base)/3 mL nebulization soln losartan 25 mg tablet 50 mg PO DAILY 10/18/19 Unknown History hydroxyzine HCl 25 mg tablet 25 mg PO BID PRN anxiety #30 tabs 02/15/20 Unknown Rx fluticasone fur. 100 mcg-umeclid 1 inh inhalation DAILY #60 ea 10/19/20 Unknown Rx 62.5 mcg-vilant 25 mcg inhalat.powder (Trelegy Ellipta) hydrocodone-acetaminophen 5-325mg 1 tab PO Q6H PRN PRN Pain 3 days 08/17/23 Unknown Rx 5mg-325mg #12 TABLETS Allergy/AdvReac Type Severity Reaction Status Date / Time latex Allergy Severe Other Verified 11/22/20 07:42 Family History Sister COPD (chronic obstructive pulmonary disease) Surgical History No pertinent past surgical history Social History Smoking Status: Former smoker quit date: 07/10/17 pack-years: 40 ROS ROS ED ROS Narrative Constitutional: No fever, no chills. HEENT: No sore throat. No neck pain. No loss of vision. No rhinorrhea. Cardiovascular: No chest pain. No palpitations. No pedal edema. Respiratory: No cough, no shortness of breath. Abdominal: No abdominal pain. No nausea. No vomiting. Genitourinary: No dysuria. No hematuria. Musculoskeletal: No myalgias. Right elbow pain, and swelling with redness- improving. Positive right wrist pain and swelling. Pain worse with movement. Neurologic: No headaches. No dizziness. No lightheadedness. Skin: No rash. No change in color. Psychiatric: No depression. No anxiety. EXAM Physical Exam Narrative Exam Narrative: Afebrile. Vital signs noted. Nontoxic-appearing. HEENT: Normocephalic. Atraumatic. PERRL, EOMI. Neck soft and supple. No point tenderness or step off. Cardiovascular: Regular rate and rhythm. No murmurs, rubs, or gallops appreciated. Respiratory: No tachypnea. Lungs clear to auscultation bilaterally. Gastrointestinal: Abdomen soft, nontender, with normoactive bowel sounds. No rebound or guarding. Neurological: Awake. Alert. Nonfocal, nonlateralizing. Skin: No rash. Normal color. No pallor. Musculoskeletal: No pedal edema. Positive tenderness right lateral epicondyles/proximal forearm. No olecranon bursitis tenderness. Able to flex and extend forearm, able to supinate as well. Positive diffuse swelling with mild erythema right distal radius. Neurovascular intact distally. Palpable radial pulse, right. Good capillary refill fingers. Able to move thumb/oppose. Const Vital Signs: 08/17/23 11:17 08/17/23 11:19 Temperature 97.6 F L 97.6 F L Temperature Source Temporal Temporal Pulse Rate 100 103 H Respiratory Rate 18 16 Blood Pressure 175/136 H 175/136 H Blood Pressure Mean 149 149 Pulse Ox 97 97 Oxygen Delivery Method Room Air Room Air MDM MDM MDM Narrative Medical decision making narrative: I have low concern for septic arthritis in this patient as he has no pain with passive range of motion or active range of motion of the elbow. In the differential diagnosis would be cellulitis of the right upper extremity as well as arthritis versus tendinitis/overuse syndrome. No feel laboratory work is indicated. He is nontoxic-appearing. X-rays will be obtained of the right wrist as well as the right elbow to rule out fracture. Additionally, I have low suspicion for DVT and do not feel that ultrasound is indicated because he has more localized swelling than circumferential and diffuse swelling. X-rays of the right elbow and 3 views interpreted by myself independently shows no evidence of fracture, but there is arthritis of the radial head noted with small joint effusion. Additionally, x-rays of the right wrist interpreted by myself independently shows no evidence of fracture but there are degenerative changes of the right distal radius. I reviewed the radiology reports for both the elbow and the wrist x-rays which confirm my independent interpretation. I do feel that this is a cellulitic process that requires antibiotics, and once again I do not think that this is a septic arthritis which requires arthrocentesis. Patient will be placed in an James wrap in his right elbow and given a cock-up wrist splint to wear and continue his anti-inflammatories. He was given an intramuscular injection of Toradol prior to discharge and I did write him a prescription for 12 Braggs tablets to take for breakthrough pain over the next few days. He was referred to orthopedics. I feel he can be discharged to follow-up with orthopedics regarding his arthritis. Return instructions to the emergency department were reviewed. Disposition is discharged home in stable condition. History & Record Review Discussion w/independent historian: Patient Radiography X-Ray: Read by ED Physician and DJD Discharge Plan Triage Chief Complaint: Upper Extremity Injury ED Provider: Fred Rodrigez Dx/Rx/DC Orders Clinical Impression: Arthritis of right wrist, Arthritis of elbow, right Instructions: ED Osteoarthritis Prescriptions: New hydrocodone-acetaminophen 5-325 mg tablet 1 tab PO Q6H PRN PRN (Reason: Pain) 3 Days Qty: 12 0RF No Action losartan 25 mg tablet 50 mg PO DAILY hydroxyzine HCl 25 mg tablet 25 mg PO BID PRN (Reason: anxiety) Qty: 30 1RF amlodipine 5 MG tablet 5 mg PO DAILY Patient Comments: TAKE 1 TABLET BY MOUTH EVERY DAY acetaminophen 325 MG tablet 2,000 mg PO 4X/DAY PRN (Reason: pain) Rx Instructions: pt educated on max tylenol amount 4,000 mg per day albuterol sulfate 90 mcg/actuation HFA aerosol inhaler 2 puff IH Q4H Patient Comments: INHALE 2 PUFFS INTO THE LUNGS EVERY 4 HOURS NEEDED FOR SHORTNESS OF BREATH/WHEEZE ipratropium-albuterol 3 ML solution for nebulization 3 ml inhalation Q6H Qty: 120 0RF hydroxyzine pamoate 25 MG capsule 50 mg PO TID PRN PRN (Reason: Anxiety) Qty: 90 0RF Trelegy Ellipta 100-62.5-25 mcg blister with device 1 inh INHALATION DAILY Qty: 60 6RF Primary Care Provider: Faith James Referrals: Faith James DO [Primary Care Provider] - Osito Xiao MD [Med Staff - Active Staff] - 3-5 Days Activity Restrictions/Additional Instructions: Continue your qiog-gfk-jrugwly anti-inflammatories. Follow-up with orthopedics as soon as possible. Wear your splint and your James wrap. Print Language: Japanese Disposition Disposition: Home, Self Care
--- NOTE | 2023-08-17 12:21 | RAD_ITS ---
STUDY: X-RAY - RIGHT ELBOW REASON FOR EXAM: Male, 63 years old. Atraumatic pain. TECHNIQUE: 3 view(s) of the elbow. COMPARISON: None. FINDINGS: Degenerative spurring along the lateral aspect of the radial head. There is degenerative arthrosis of the radiocapitellar and ulnotrochlear articulations. Joint effusion and soft tissue swelling. RAD/Elbow min 3 Views IMPRESSION: Arthrosis of the elbow, as described above. Joint effusion and soft tissue swelling. Electronically Signed: Jose Espinoza MD at 12:41 EDT ,
--- NOTE | 2023-08-17 12:21 | RAD_ITS ---
STUDY: X-RAY - RIGHT WRIST REASON FOR EXAM: Male, 63 years old. Nontraumatic pain and swelling. TECHNIQUE: 3 view(s) of the wrist were obtained. COMPARISON: None. FINDINGS: Normal visualized distal radius and ulna. There is degenerative arthrosis of the radiocarpal articulation. Calcification of the triangular fibrocartilage. Normal carpal bones. Normal carpal articulations. There is degenerative arthrosis of the carpometacarpal articulation of the thumb. Normal second through fifth carpometacarpal articulations. Normal visualized metacarpal bones. The soft tissue structures are unremarkable. RAD/Wrist min 3 Views IMPRESSION: Degenerative changes. Soft tissue swelling. Electronically Signed: Jose Espinoza MD at 12:39 EDT ,
[2023-08-17 13:17] VITALS: BP 213/118; PULSE 90; RESP 18; TEMP 36.9; O2SAT 95
[2023-08-17] MEDS: Ketorolac 60 MG/2 ML Vial IM (13:27)
[2023-08-17 14:08] VITALS: BP 196/119; PULSE 85; RESP 18; TEMP 36.7; O2SAT 98
--- NOTE | 2023-08-17 14:09 | NURSING ---
Dr. Rodrigez notified that pts BP is 196/119 before discharge. Pt asymptomatic. Pt to follow up with primary regarding high BP.
== END 2023-08-17 14:11 | disposition home or self-care (01) ==
PROVIDERS: Emergency Provider Emergency Medicine; PCP Internal Medicine; Visit Provider Emergency Medicine
DX: M19.021 Primary osteoarthritis, right elbow (principal); J44.9 Chronic obstructive pulmonary disease, unspecified; Z87.891 Personal history of nicotine dependence; M19.031 Primary osteoarthritis, right wrist
CPT/HCPCS: 73080; 73110; 96372; 99283

== ENCOUNTER → 2024-08-26 | Outpatient (CLI) | payer MEDICARE, SELFPAY | END | disposition home or self-care (01) | PROVIDERS: PCP Internal Medicine; Referring Provider Internal Medicine Critical Care Medicine; Visit Provider Internal Medicine Critical Care Medicine | DX: R94.2 Abnormal results of pulmonary function studies (principal) | CPT/HCPCS: 94060; 94726; 94729 ==

== ENCOUNTER → 2024-09-07 | Outpatient (CLI) | payer MEDICARE, SELFPAY ==
--- NOTE | 2024-09-07 13:01 | CT_ITS ---
PROCEDURE: LOW DOSE CT LUNG SCREENING 09/07/2024 REASON FOR EXAM: H/O TOBACCO DEPENDENCY Patient has smoked 1 pack per day for 20 years. Former smoker. TECHNIQUE: LOW DOSE CT LUNG SCREENING Coronal and Sagittal reconstruction series were provided. One or more dose reduction techniques were used (e.g., Automated exposure control, adjustment of the mA and/or kV according to patient size, use of iterative reconstruction technique). REFERENCE LINK: [facility] Lung-RADS RADIATION DOSE SUMMARY: CTDlvol: 3.02 mGy DLP: 123.8 mGycm COMPARISON: Prior examination dated September 30, 2019. FINDINGS: PULMONARY NODULES: (Only nodules >3mm are reported) Nodules described below are on series 1 unless otherwise specified. Pulmonary Nodules: No suspicious nodules are seen. Hardware:None Lymph Nodes:No significant lymph nodes are present. Heart and Vasculature:The heart is nonenlarged. Coronary Artery Calcifications: Present Lungs and Airways: Advanced emphysematous changes are present. Large bulla seen in the right hemithorax. Pleura:No pleural effusion. Upper Abdomen:Unremarkable. Bones:Degenerative changes of the thoracic spine. CT/Low Dose CT Lung Screening IMPRESSION: No suspicious nodules are seen. Severe emphysematous changes worse in the right hemithorax. Coronary artery calcification (CAC) is is present Lung-RADS Category: 2 BENIGN (BASED ON IMAGING FEATURES OR INDOLENT BEHAVIOR). RECOMMEND 12-MONTH SCREENING LDCT. Other Significant Findings: Reading Location: [facility]
[2024-09-07 13:54] VITALS: PULSE 70; PULSE 74; PULSE 85; PULSE 89; PULSE 91; PULSE 94; PULSE 95; PULSE 96; O2SAT 86; O2SAT 87; O2SAT 88; O2SAT 89; O2SAT 90
--- NOTE | 2024-09-07 14:07 | CPS ---
Patient wears 2-4 lpm O2 continuous at home. SpO2 88% on room air in less than a minute. Placed patient back on 4 lpm O2 continuous from his home tank, after several minutes SpO2 93%. Started walk on 4 lpm but had to increase to 5 lpm then 6 lpm. Each time SpO2 dropped below 88% it continued to drop as low as 82% at one time, even with rest and increase of O2. Patient did not experience any shortness of breath that he would even consider as moderate.
--- NOTE | 2024-09-09 08:32 | PCM.PSN.6M ---
PSN 6 Minute Walk Test 6 Minute Walk Test 6 Minute Walk Test: 6 Minute Walk Test PSN:6-Minute Walk Test Start: 09/07/24 13:54 Freq: Status: Active Protocol: [id number].6MINW Document 09/07/24 13:54 DOROTHYRADHA (Rec: 09/07/24 14:11 GERROXANAON [id number]) 6 Minute Walk Test Date Performed 09/07/24 Time Performed 12:30 Height 6 ft Weight: 190 lb Weight in Pounds 190.[address]: Ernesto Rich Assistive device None used: Pre-test Oxygen Delivery Room Air Method Pulse Ox (%) 88 Pulse Rate (60-100 70 beats/min) Dyspnea [place] Scale ( 0 0-10) Exertion [place] Scale 6 (6-20) 1st minute Oxygen Flow Rate (L/ 4 min) (L/min) Oxygen Delivery Nasal Cannula Method Pulse Ox (%) 90 Pulse Rate (60-100 85 beats/min) 2nd minute Oxygen Flow Rate (L/ 4 min) (L/min) Oxygen Delivery Nasal Cannula Method Pulse Ox (%) 86 Pulse Rate (60-100 96 beats/min) 3rd minute Oxygen Flow Rate (L/ 5 min) (L/min) Oxygen Delivery Nasal Cannula Method Pulse Ox (%) 90 Pulse Rate (60-100 89 beats/min) 4th minute Oxygen Flow Rate (L/ 5 min) (L/min) Oxygen Delivery Nasal Cannula Method Pulse Ox (%) 88 Pulse Rate (60-100 95 beats/min) 5th minute Oxygen Flow Rate (L/ 6 min) (L/min) Oxygen Delivery Nasal Cannula Method Pulse Ox (%) 89 Pulse Rate (60-100 91 beats/min) 6th minute Oxygen Flow Rate (L/ 6 min) (L/min) Oxygen Delivery Nasal Cannula Method Pulse Ox (%) 87 Pulse Rate (60-100 94 beats/min) Dyspnea [place] Scale ( 2 0-10) Exertion [place] Scale 12 (6-20) Post-test Oxygen Flow Rate (L/ 6 min) (L/min) Oxygen Delivery Nasal Cannula Method Pulse Ox (%) 90 Pulse Rate (60-100 74 beats/min) Full Laps Walked 18 Partial Lap, Number 5 of Tiles Walked Total Distance 1067 Walked (ft) 09/07/24 14:07 Cardiopulmonary Services by Vera Rojas Patient wears 2-4 lpm O2 continuous at home. SpO2 88% on room air in less than a minute. Placed patient back on 4 lpm O2 continuous from his home tank, after several minutes SpO2 93%. Started walk on 4 lpm but had to increase to 5 lpm then 6 lpm. Each time SpO2 dropped below 88% it continued to drop as low as 82% at one time, even with rest and increase of O2. Patient did not experience any shortness of breath that he would even consider as moderate. Initialized on 09/07/24 14:07 - END OF NOTE Interpretation Interpretation: The patient ambulated 1067 feet over the course of 6 minutes beginning on room air without assistive devices. Pretesting oxygen saturation was noted to be 88% on room air. 4 L/min of oxygen was applied with improvement in oxygen saturations to 93% prior to commencement of testing. With ambulation, the patient desaturated on several occasions requiring an escalation in flow rate to 6 L/min to maintain appropriate saturations. Recommendations Recommendations: 4 L/min of supplemental oxygen is required at rest, while 6 L/min is required with exertion.
== END | disposition home or self-care (01) ==
PROVIDERS: PCP Internal Medicine; Referring Provider Internal Medicine Critical Care Medicine; Visit Provider Internal Medicine Critical Care Medicine
DX: Z12.2 Encounter for screening for malignant neoplasm of respiratory organs (principal); F17.211 Nicotine dependence, cigarettes, in remission; R94.2 Abnormal results of pulmonary function studies
CPT/HCPCS: 71271; 94618

== ENCOUNTER → 2024-09-21 | Outpatient (CLI) | payer MEDICARE, SELFPAY ==
[2024-09-22 08:13] LABS: Alpha Antitrypsin Serum 111 mg/dL (101-187)
== END | disposition home or self-care (01) ==
LOC: PAVLAB 11:23
PROVIDERS: PCP Internal Medicine; Referring Provider Nurse Practitioner Acute Care; Visit Provider Nurse Practitioner Acute Care
DX: E88.01 Alpha-1-antitrypsin deficiency (principal)
CPT/HCPCS: 36415; 82103

== ENCOUNTER → 2024-10-05 | Outpatient (CLI) | payer MEDICARE, SELFPAY ==
[2024-10-05 15:18] LABS: Hematocrit 46.2 % (40-54); Hemoglobin 16.2 g/dL (13.0-16.5); Mean Corp Hgb Conc 35.1 g/dL (32-36); Mean Corpuscular Volume 100.0 fL (80-94); Mean Platelet Vol. 10.6 fl (6.2-12.0); Platelet Count 227 K/mm3 (150-450); RBC Distribution Width CV 11.5 % (11.6-14.6); RBC Distribution Width SD 42.2 fl (35.1-43.9); Red Blood Count 4.62 M/mm3 (4.6-6.2); White Blood Count 9.0 K/mm3 (4.4-11.0)
[2024-10-05 15:49] LABS: AST(SGOT) 44 U/L (<=37); Alanine Aminotransfer ALT/SGPT 70 U/L (<=46); Albumin, Serum 4.2 g/dL (3.4-4.8); Alkaline Phosphatase 56 U/L (40-129); Anion Gap 10 (5-15); BUN 19 mg/dL (4-19); BUN/Creat Ratio 22.4 RATIO (10-20); Calcium,Total 8.9 mg/dL (7.6-11.0); Carbon Dioxide 23.7 mmol/L (21.0-32.0); Chloride 105 mmol/L (98-108); Globulin 2.9 g/dL (2.2-4.2); Glucose 93 mg/dL (70-99); Potassium 4.3 mmol/L (3.3-5.1)
[2024-10-11 15:07] LABS: HCV Quant. RNA PCR 2800000 IU/mL (.)
== END | disposition home or self-care (01) ==
LOC: MTLAB 11:43
PROVIDERS: PCP Internal Medicine; Referring Provider Internal Medicine Gastroenterology; Visit Provider Internal Medicine Gastroenterology
DX: B18.2 Chronic viral hepatitis C (principal)
CPT/HCPCS: 36415; 80053; 82105; 85027; 87522; 87902

== ENCOUNTER → 2024-11-01 | Outpatient (CLI) | payer MEDICARE, SELFPAY ==
[2024-11-01 14:10] LABS: HIV Nonreactive (Nonreactive)
== END | disposition home or self-care (01) ==
PROVIDERS: PCP Internal Medicine; Referring Provider Internal Medicine Gastroenterology; Visit Provider Internal Medicine Gastroenterology
DX: B19.20 Unspecified viral hepatitis C without hepatic coma (principal); K74.00 Hepatic fibrosis, unspecified; R53.83 Other fatigue
CPT/HCPCS: 36415; 86703

== ENCOUNTER → 2024-11-09 | Outpatient (CLI) | payer MEDICARE, SELFPAY ==
[2024-11-09 13:11] LABS: Hematocrit 45.3 % (40-54); Hemoglobin 16.4 g/dL (13.0-16.5); Immature Granulocytes Count 0.020 X10^3/uL (0.0-0.0); Mean Corp Hgb Conc 36.2 g/dL (32-36); Mean Corpuscular Volume 100.0 fL (80-94); Mean Platelet Vol. 10.8 fl (6.2-12.0); NRBC Flagged by Analyzer 0 % (0-5); Platelet Count 210 K/mm3 (150-450); RBC Distribution Width CV 11.5 % (11.6-14.6); RBC Distribution Width SD 42.1 fl (35.1-43.9); Red Blood Count 4.53 M/mm3 (4.6-6.2); White Blood Count 8.2 K/mm3 (4.4-11.0)
== END | disposition home or self-care (01) ==
LOC: LAB 12:00
PROVIDERS: PCP Internal Medicine; Referring Provider Nurse Practitioner Acute Care; Visit Provider Nurse Practitioner Acute Care
DX: J96.11 Chronic respiratory failure with hypoxia (principal); J44.89 Other specified chronic obstructive pulmonary disease
CPT/HCPCS: 36415; 85025